=== PATIENT | female | born 1955 | race Caucasian/White ===

== ENCOUNTER 2020-08-15 10:42 | Outpatient (REF) | payer OTHER, SELFPAY ==
[2020-08-15 14:06] LABS: MANUAL DIFF FLAG NO
[2020-08-15 14:09] LABS: Basophils Percent Auto 0.6 % (0-2); Eosinophils Absolute Auto 0.1 X10*3/uL (0.0-0.4); Hematocrit 37.2 % (37-47); Hemoglobin 12.2 g/dl (12.0-16.0); Imm Gran Abs Auto 0.01 X10*3/uL (0.00-0.03); Imm Gran Pct Auto 0.1 % (0.0-0.4); Lymphocytes Absolute Auto 1.6 X10*3/uL (1.2-4.9); Lymphocytes Percent Auto 22.3 % (20-40); Mean Corpuscular HGB Conc 32.8 g/dl (31.0-35.0); Mean Corpuscular Hemoglobin 27.9 pg (27.0-33.0); Mean Corpuscular Volume 84.9 fL (80-98); Mean Platelet Volume 9.8 fL (9.4-12.3); Monocytes Absolute Auto 0.6 X10*3/uL (0.1-1.2); Monocytes Percent Auto 8.7 % (2-11); Neutrophils Absolute Auto 4.7 X10*3/uL (2.0-8.3); Neutrophils Percent Auto 66.3 % (45-73); Platelet Count 175 X10*3/uL (160-400); Red Blood Count 4.38 X10*6/uL (4.20-5.50); White Blood Count 7.1 X10*3/uL (4.8-10.8)
[2020-08-15 14:28] LABS: Glucose Urine UA NEG (NEG); PH 5.5 (5.0-8.0); Urine Blood NEG (NEG)
[2020-08-15 14:29] LABS: Leukocyte Esterase Urine NEG (NEG); Nitrite Urine NEG (NEG); Specific Gravity - Urine >= 1.030 (1.005-1.025); Urine Ketones NEG (NEG); Urine Protein NEG (NEG-TRACE)
[2020-08-15 14:33] LABS: Appearance Urine CLOUDY; Color Urine YELLOW
[2020-08-15 14:36] LABS: Estimated Average Glucose 105 mg/dL; Hemoglobin A1c % 5.3 %
[2020-08-15 14:41] LABS: Alanine Aminotransferase 20 U/L (0-31); Albumin Level 4.2 g/dL (3.5-5.0); Alkaline Phosphatase 81 U/L (39-117); Anion Gap 15 (12-20); Aspartate Amino Transferase 20 U/L (5-31); Bilirubin Total 0.6 mg/dL (0.0-1.0); Blood Urea Nitrogen 13 mg/dL (9-16); Calcium 8.8 mg/dL (8.4-10.2); Carbon Dioxide 26 mmol/L (22-29); Chloride 106 mmol/L (96-108); Cholesterol 146 mg/dL; Estimated Glomerular Filt Rate > 60; Glucose Fasting 94 mg/dL (60-99); HDL Cholesterol 33 mg/dL; LDL Cholesterol Calculated 93 mg/dl; Potassium 3.9 mmol/l (3.3-5.1); Sodium 143 mmol/L (135-145); Total Protein 6.5 g/dL (6.5-8.0); Triglycerides 104 mg/dL
[2020-08-15 15:00] LABS: Amorphous Sediment Urine 3+ /LPF; RBC Urine 0 /HPF (0); Squamous Epithelial Cell Urine TRACE /LPF; WBC Urine 0-2 /HPF (0-4)
[2020-08-15 15:01] LABS: Vitamin D 25-OH Total 25.1 ng/mL (>30)
[2020-08-15 16:38] LABS: Folate 6.4 ng/mL (> or = 4.0); Vitamin B12 562 pg/mL (200-900)
== END 2020-08-15 10:43 | disposition home or self-care (01) ==
LOC: HO.HMGCLDS 10:42
PROVIDERS: PCP Internal Medicine; Visit Provider Internal Medicine
DX: E78.5 Hyperlipidemia, unspecified (principal); I10 Essential (primary) hypertension; R73.01 Impaired fasting glucose; G62.9 Polyneuropathy, unspecified; E55.9 Vitamin D deficiency, unspecified
CPT/HCPCS: 36415; 80053; 80061; 81001; 81003; 82306; 82607; 82746; 83036; 85025

== ENCOUNTER 2021-02-06 10:48 | Outpatient (REF) | payer OTHER, SELFPAY ==
[2021-02-06 13:54] LABS: MANUAL DIFF FLAG NO
[2021-02-06 14:02] LABS: Basophils Absolute Auto 0.1 X10*3/uL (0.0-0.2); Basophils Percent Auto 0.8 % (0-2); Eosinophils Absolute Auto 0.2 X10*3/uL (0.0-0.4); Eosinophils Percent Auto 1.8 % (0-4); Hematocrit 39.9 % (37-47); Hemoglobin 12.8 g/dl (12.0-16.0); Imm Gran Abs Auto 0.02 X10*3/uL (0.00-0.03); Imm Gran Pct Auto 0.2 % (0.0-0.4); Lymphocytes Absolute Auto 2.2 X10*3/uL (1.2-4.9); Lymphocytes Percent Auto 25.5 % (20-40); Mean Corpuscular HGB Conc 32.1 g/dl (31.0-35.0); Mean Corpuscular Hemoglobin 27.3 pg (27.0-33.0); Mean Corpuscular Volume 85.1 fL (80-98); Mean Platelet Volume 9.8 fL (9.4-12.3); Monocytes Absolute Auto 0.8 X10*3/uL (0.1-1.2); Neutrophils Absolute Auto 5.4 X10*3/uL (2.0-8.3); Neutrophils Percent Auto 62.7 % (45-73); Platelet Count 243 X10*3/uL (160-400); Red Blood Count 4.69 X10*6/uL (4.20-5.50); Red Cell Distribution Width 13.3 % (11.0-16.0); White Blood Count 8.7 X10*3/uL (4.8-10.8)
[2021-02-06 14:30] LABS: Alanine Aminotransferase 17 U/L (0-31); Albumin Level 4.3 g/dL (3.5-5.0); Alkaline Phosphatase 75 U/L (39-117); Anion Gap 13 (12-20); Aspartate Amino Transferase 19 U/L (5-31); Bilirubin Total 0.5 mg/dL (0.0-1.0); Blood Urea Nitrogen 17 mg/dL (9-16); Calcium 8.9 mg/dL (8.4-10.2); Carbon Dioxide 27 mmol/L (22-29); Chloride 106 mmol/L (96-108); Cholesterol 203 mg/dL; Estimated Glomerular Filt Rate > 60; Glucose Fasting 87 mg/dL (60-99); HDL Cholesterol 31 mg/dL; LDL Cholesterol Calculated 144 mg/dl; Potassium 4.4 mmol/L (3.3-5.1); Sodium 142 mmol/L (135-145); Total Protein 6.8 g/dL (6.5-8.0); Triglycerides 144 mg/dL
[2021-02-06 14:39] LABS: TSH reflex Free T4 1.76 uIU/mL (0.32-4.0); Vitamin D 25-OH Total 14.1 ng/mL (>30)
[2021-02-06 14:53] LABS: Folate 4.7 ng/mL (> or = 4.0); Vitamin B12 516 pg/mL (200-900)
== END 2021-02-06 10:49 | disposition home or self-care (01) ==
LOC: HO.HMGCLDS 10:48
PROVIDERS: PCP Internal Medicine; Visit Provider Internal Medicine
DX: E78.00 Pure hypercholesterolemia, unspecified (principal); G62.9 Polyneuropathy, unspecified; R73.01 Impaired fasting glucose; E66.9 Obesity, unspecified; J45.20 Mild intermittent asthma, uncomplicated; M51.36 Other intervertebral disc degeneration, lumbar region; E55.9 Vitamin D deficiency, unspecified
CPT/HCPCS: 36415; 80053; 80061; 82306; 82607; 82746; 84443; 85025

== ENCOUNTER 2021-02-27 15:47 | Emergency (ER) | payer OTHER, SELFPAY ==
--- NOTE | ~2021-02-27 | XR_ITS ---
EXAMINATION: XR CHEST CLINICAL INFORMATION: Wheezing. COMPARISON: Previous chest x-ray June 2018 TECHNIQUE: Frontal view of the chest was obtained. FINDINGS: The cardiac and mediastinal contours are normal. There are increased markings seen in the central right upper lobe questionable for bronchial wall thickening. The lungs are otherwise clear. There is no pleural effusion or pneumothorax. There is curvature of the spine. XR/XR chest 1V IMPRESSION: Question bronchial wall thickening in the right upper lobe, otherwise unremarkable exam.
--- NOTE | ~2021-02-27 | CT_ITS ---
EXAMINATION: CT BRAIN AND CT CERVICAL SPINE WITHOUT CONTRAST. CLINICAL INFORMATION: Status post fall. Altered mental status. Confusion. COMPARISON: CT brain 06/12/2018 TECHNIQUE: 5 mm thin axial and reformatted 2 mm thin sagittal and coronal images of brain were obtained. Subsequently axial 3 mm thin and reformatted 2 mm thin sagittal and coronal images of cervical spine were obtained. DLP 1090 FINDINGS: BRAIN: There is no acute intra-axial, extra-axial bleed, masses or midline shift. There is no acute infarction in evolution. Is no edema. Starkey to white matter differentiation is maintained. The lateral ventricles are symmetrical in size and configuration without enlargement. Bone windows reveal no calvarial abnormality. I lateral paranasal sinuses and mastoid air cells are well-aerated. CERVICAL SPINE: There is reversal of cervical lordosis. The vertebral heights and alignment is normal. There is loss of C4-C5, C5-C6, C6-C7 disc heights with moderate ventral spondylosis. There is mild rotary subluxation at C1-C2 disc level. No visible acute fracture or dislocation seen. The prevertebral and paravertebral soft tissues are normal. The lung apices are clear. CT/CT head/brain wo con IMPRESSION: No acute intracranial process seen. Reversal of cervical lordosis. No visible acute fracture or dislocation seen. There is a rotatory subluxation C1-C2 disc level. There is mild degenerative disc changes and spondylosis C4-C5 through C6-C7 disc levels.
--- NOTE | ~2021-02-27 | CT_ITS ---
EXAMINATION: CT BRAIN AND CT CERVICAL SPINE WITHOUT CONTRAST. CLINICAL INFORMATION: Status post fall. Altered mental status. Confusion. COMPARISON: CT brain 06/12/2018 TECHNIQUE: 5 mm thin axial and reformatted 2 mm thin sagittal and coronal images of brain were obtained. Subsequently axial 3 mm thin and reformatted 2 mm thin sagittal and coronal images of cervical spine were obtained. DLP 1090 FINDINGS: BRAIN: There is no acute intra-axial, extra-axial bleed, masses or midline shift. There is no acute infarction in evolution. Is no edema. Star[place] to white matter differentiation is maintained. The lateral ventricles are symmetrical in size and configuration without enlargement. Bone windows reveal no calvarial abnormality. I lateral paranasal sinuses and mastoid air cells are well-aerated. CERVICAL SPINE: There is reversal of cervical lordosis. The vertebral heights and alignment is normal. There is loss of C4-C5, C5-C6, C6-C7 disc heights with moderate ventral spondylosis. There is mild rotary subluxation at C1-C2 disc level. No visible acute fracture or dislocation seen. The prevertebral and paravertebral soft tissues are normal. The lung apices are clear. CT/CT cervical spine wo con IMPRESSION: No acute intracranial process seen. Reversal of cervical lordosis. No visible acute fracture or dislocation seen. There is a rotatory subluxation C1-C2 disc level. There is mild degenerative disc changes and spondylosis C4-C5 through C6-C7 disc levels.
[2021-02-27 15:54] VITALS: BP 124/73; BP 142/82; PULSE 87; RESP 18; TEMP 37.1; O2SAT 98; BMI 34.0
--- NOTE | 2021-02-27 16:02 | ECG_ITS ---
Test Reason : AMS Blood Pressure : / mmHG Vent. Rate : 088 BPM Atrial Rate : 088 BPM P-R Int : 128 ms QRS Dur : 072 ms QT Int : 334 ms P-R-T Axes : 076 057 067 degrees QTc Int : 404 ms Normal sinus rhythm Normal ECG When compared with ECG of 18-JUL-2018 20:03, No significant change was found Referred By: Danielle Rasheed Electronically Signed By:JEANA THOMASON
--- NOTE | 2021-02-27 16:06 | ED_ITS ---
HPI - Altered Mental Status General Chief Complaint: Altered Mental Status Stated Complaint: ams Time Seen by Provider: 02/27/21 15:56 Source: patient and EMS Mode of arrival: EMS Limitations: altered mental status History of Present Illness HPI narrative: 65 y/o female with history of chronic back pain on chronic o piates, anxiety, insomnia, asthma, HLD who presents to the ED from her assisted living via EMS after she was found altered laying on the floor in her kitchen with burning food on the stove. Patient was found confused, altered and agitated. She told EMS she was in the hospital when they arrived. She was combative en route when they attempted IV access. MD complaint: altered mental status and confusion Onset (ago): hour(s) (3) Severity: moderate Consistency of symptoms: waxing and waning Context: history of similar presentation (occurred once before per [place] ) Associated symptoms: other (insomnia) Related Data Previous Rx's Medication Instructions Recorded SHOWER CHAIR #1 ea 12/11/20 zolpidem 10 mg tablet 10 mg PO BEDTIME PRN 30 Days #30 01/05/21 tab pregabalin 150 mg capsule 150 mg PO TID 30 Days #90 cap 01/30/21 lorazepam 1 mg tablet 1 mg PO BID PRN 30 Days #60 tab 02/04/21 morphine 60 mg tablet,extended 120 mg PO BID 28 Days #112 tab 02/06/21 release oxycodone-acetaminophen 10 mg-325 1 tab PO BID PRN 28 Days #56 tab 02/06/21 mg tablet albuterol sulfate 90 mcg/actuation 2 puff PO QID PRN #8.5 cap 02/25/21 aerosol inhaler ibuprofen 800 mg tablet 800 mg PO TID PRN #270 cap 02/25/21 methocarbamol 500 mg tablet 500 mg PO Q8H PRN #90 cap 02/26/21 Allergies Allergy/AdvReac Type Severity Reaction Status Date / Time No Known Allergies Allergy Verified 02/18/21 15:30 Review of Systems Review of Systems: Constitutional: No Fever, No Chills ENT/Mouth: No sore throat, No Rhinorrhea Cardiovascular: No Chest Pain, No SOB, No Orthopnea, No Edema Respiratory: No Cough, No Sputum, No Wheezing, No dyspnea Gastrointestinal: No Nausea, No Vomiting, No Diarrhea, No abdominal Pain Genitourinary: No Dysuria, No Urinary Frequency, No Hematuria Musculoskeletal: No joint pain, No Myalgias Skin: No Skin Lesions, No rash Neuro: No Weakness, No Numbness, No Dizziness, No Headache Psych: No Anxiety/Panic, No Depression Heme/Lymph: No Bruising, No Lymphadenopathy Endocrine: No Polyuria, No Polydipsia [facility] Past Medical History Attestation statement: The following information was validated with the patient. Medical History Anxiety Asthma Elevated blood pressure reading Impaired fasting glucose Insomnia Lumbar degenerative disc disease Neuropathy Obesity (BMI 30-39.9) Pure hypercholesterolemia Vitamin D deficiency Surgical History H/O total hysterectomy History of lumbar surgery Family History Family History Father CVD (cardiovascular disease) Mother Cancer Social History Social History Alcohol intake: unknown Smoking Status: Unknown if ever smoked Use of substances other than those prescribed or required for medical reasons: Unknown Advance Directives: No Advance Directives Information Provided: Yes Patient : No Physical Exam Vital Signs: Vital Signs: Last Vital Signs Temp 98.7 F 02/27/21 15:54 Pulse 72 02/27/21 16:54 Resp 16 02/27/21 16:54 BP 128/64 02/27/21 16:54 Pulse Ox 98 02/27/21 16:54 Body Mass Index 34.0 Appearance: lethargic female, appears older than stated age, arrives in night gown with dried food on the front Eyes: Pupils equal, round and reactive to light, 3mm bilaterally. ENT: Pharynx normal. Neck: Normal inspection. Neck supple. CVS: Normal heart rate and rhythm. Pulses normal. Respiratory: No respiratory distress. Breath sounds with mild end expiratory wheeze in upper lung perkins Abdomen: Obese, Soft and nontender. +BS x4 Skin: Skin warm and dry. Normal skin color. Normal skin turgor. No rashes. Extremities: No lower extremity edema. Atraumatic. Neuro: Arouses to voice, follows simple commands, strength equal and symmetrical throughout, able to lift both legs off the bed, raise both arms above her head, no pronator drift, equal paper sealer strength, falls asleep when not engaged. Course Course Course Narrative: 65 y/o female with chronic pain on high dose opiates who presents with AMS and fall, unknown down time. Neuro exam is non-focal but altered and confused. Doubt CVA. Concern for polypharmacy and potential unintentional narcotic overdose. She is lethargic but follows commands. Will check EKG, CXR, labs and CT head/C-spine. Spoke with patient's daughter at the bedside. She reported that her mom was te xting her earlier today saying she has not slept in several nights. She is no longer taking Ambien, because she lost a day and a half and had a similar episode to this when she was on it. Daughter reports NO recent medication changes and she actually thinks the pain meds she is on is not enough. She continues to report chronic pain in her back. Will likely require admission. Reevaluation(s) Reevaluation #1: Lab workup and CT scans are largely unremarkable. Patient's mental status significantly improved after several hours in the ER. She is now AAO X4. When asked about the events of today patient reports taking 5 Ambien in order to sleep. She admits to struggling to sleep and has not gotten sleep in 1 week. She was not trying to harm herself she was just desperate for sleep. She denies trying to harm herself. She did not know the maximum dose of this medication. Safety concern were discussed with the patient and the daughter at the bedside. It is recommended that the patient STOP ambien as this is the second adverse event. The daughter is willing to fill the pill boxes for mother. She has visiting nursing 3 times per week. There is no indication for admission to the hospital at this time. There is no SI and she has good follow up with her PCP. Case was d/w Radha from [facility] and Dr. Tyson as well. Patient's daughter will stay with her tonight and arrange her medications moving forward. MDM - Altered Mental Status Medical Records Attestation: I reviewed the patient's medical records. Lab Data Attestation: I reviewed the patient's lab results. Result diagrams: 02/27/21 16:14 02/27/21 16:14 Labs: Lab Results 02/27/21 02/27/21 02/27/21 Range/Units 16:14 16:14 16:14 WBC 8.0 (4.8-10.8) X10*3/uL RBC 4.38 (4.20-5.50) X10*6/uL Hgb 12.0 (12.0-16.0) g/dl Hct 36.4 L (37-47) % MCV 83.1 (80-98) fL MCH 27.4 (27.0-33.0) pg MCHC 33.0 (31.0-35.0) g/dl RDW 13.0 (11.0-16.0) % Plt Count 202 (160-400) X10*3/uL MPV 9.1 L (9.4-12.3) fL Immature Gran % (Auto) 0.2 (0.0-0.4) % Neut % (Auto) 64.2 (45-73) % Lymph % (Auto) 25.6 (20-40) % [place] % (Auto) 7.7 (2-11) % Eos % (Auto) 1.7 (0-4) % Baso % (Auto) 0.6 (0-2) % Lymph # (Auto) 2.1 (1.2-4.9) X10*3/uL [place] # (Auto) 0.6 (0.1-1.2) X10*3/uL Eos # (Auto) 0.1 (0.0-0.4) X10*3/uL Baso # (Auto) 0.1 (0.0-0.2) X10*3/uL Abs Immat Gran (auto) 0.02 (0.00-0.03) X10*3/uL Absolute Neuts (auto) 5.2 (2.0-8.3) X10*3/uL Absolute Nucleated RBC 0.000 (0.0-0.012) X10*3/uL Nucleated RBC % (auto) 0.0 (0.0-0.2) /100WBC PT 13.3 H (10.8-13.0) SEC INR 1.1 (0.9-1.1) Hold Blue Top SEE NOTE Sodium 142 (135-145) mmol/L Potassium 4.5 (3.3-5.1) mmol/L Chloride 110 H (96-108) mmol/L Carbon Dioxide 26 (22-29) mmol/L Anion Gap 11 L (12-20) BUN 19 H (9-16) mg/dL Creatinine 0.88 (0.5-1.4) mg/dL Estim Creat Clear Calc 67.5 Estimated GFR > 60 Random Glucose 107 (60-115) mg/dL Calcium 9.4 (8.4-10.2) mg/dL Magnesium 1.8 (1.6-2.6) mg/dL Total Bilirubin 0.7 (0.0-1.0) mg/dL Direct Bilirubin 0.2 (0.0-0.5) mg/dL AST 24 (5-31) U/L ALT 18 (0-31) U/L Alkaline Phosphatase 71 (39-117) U/L Total Creatine Kinase 484 H (26-140) U/L Troponin I High Sens (<3.5-17.0) ng/L Total Protein 6.4 L (6.5-8.0) g/dL Albumin 4.1 (3.5-5.0) g/dL Urine Color Urine Appearance Urine pH (5.0-8.0) Ur Specific [place] (1.005-1.025) Urine Protein (NEG-TRACE) MG/DL Urine Glucose (UA) (NEG) MG/DL Urine Ketones (NEG) MG/DL Urine Blood (NEG) Urine Nitrite (NEG) Ur Leukocyte Esterase (NEG) Urine RBC (0) /HPF Urine WBC (0-4) /HPF Ur Squamous Epith Cells /LPF Urine Bacteria /LPF Urine Opiates Screen (Not Detect) Ur Barbiturates Screen (Not Detect) Ur Phencyclidine Scrn (Not Detect) Ur Amphetamines Screen (Not Detect) U Benzodiazepines Scrn (Not Detect) Urine Cocaine Screen (Not Detect) U Marijuana (THC) Screen (Not Detect) Ethyl Alcohol mg/dL COVID-19 ([facility]) (Negative) COVID-19 Clin Com 02/27/21 02/27/21 02/27/21 Range/Units 16:14 16:14 16:14 WBC (4.8-10.8) X10*3/uL RBC (4.20-5.50) X10*6/uL Hgb (12.0-16.0) g/dl Hct (37-47) % MCV (80-98) fL MCH (27.0-33.0) pg MCHC (31.0-35.0) g/dl RDW (11.0-16.0) % Plt Count (160-400) X10*3/uL MPV (9.4-12.3) fL Immature Gran % (Auto) (0.0-0.4) % Neut % (Auto) (45-73) % Lymph % (Auto) (20-40) % [place] % (Auto) (2-11) % Eos % (Auto) (0-4) % Baso % (Auto) (0-2) % Lymph # (Auto) (1.2-4.9) X10*3/uL [place] # (Auto) (0.1-1.2) X10*3/uL Eos # (Auto) (0.0-0.4) X10*3/uL Baso # (Auto) (0.0-0.2) X10*3/uL Abs Immat Gran (auto) (0.00-0.03) X10*3/uL Absolute Neuts (auto) (2.0-8.3) X10*3/uL Absolute Nucleated RBC (0.0-0.012) X10*3/uL Nucleated RBC % (auto) (0.0-0.2) /100WBC PT (10.8-13.0) SEC INR (0.9-1.1) Hold Blue Top Sodium (135-145) mmol/L Potassium (3.3-5.1) mmol/L Chloride (96-108) mmol/L Carbon Dioxide (22-29) mmol/L Anion Gap (12-20) BUN (9-16) mg/dL Creatinine (0.5-1.4) mg/dL Estim Creat Clear Calc Estimated GFR Random Glucose (60-115) mg/dL Calcium (8.4-10.2) mg/dL Magnesium (1.6-2.6) mg/dL Total Bilirubin (0.0-1.0) mg/dL Direct Bilirubin (0.0-0.5) mg/dL AST (5-31) U/L ALT (0-31) U/L Alkaline Phosphatase (39-117) U/L Total Creatine Kinase (26-140) U/L Troponin I High Sens < 3.5 (<3.5-17.0) ng/L Total Protein (6.5-8.0) g/dL Albumin (3.5-5.0) g/dL Urine Color Urine Appearance Urine pH (5.0-8.0) Ur Specific [place] (1.005-1.025) Urine Protein (NEG-TRACE) MG/DL Urine Glucose (UA) (NEG) MG/DL Urine Ketones (NEG) MG/DL Urine Blood (NEG) Urine Nitrite (NEG) Ur Leukocyte Esterase (NEG) Urine RBC (0) /HPF Urine WBC (0-4) /HPF Ur Squamous Epith Cells /LPF Urine Bacteria /LPF Urine Opiates Screen (Not Detect) Ur Barbiturates Screen (Not Detect) Ur Phencyclidine Scrn (Not Detect) Ur Amphetamines Screen (Not Detect) U Benzodiazepines Scrn (Not Detect) Urine Cocaine Screen (Not Detect) U Marijuana (THC) Screen (Not Detect) Ethyl Alcohol < 10 mg/dL COVID-19 ([facility]) Negative (Negative) COVID-19 Clin Com See Note 02/27/21 02/27/21 Range/Units 18:17 18:17 WBC (4.8-10.8) X10*3/uL RBC (4.20-5.50) X10*6/uL Hgb (12.0-16.0) g/dl Hct (37-47) % MCV (80-98) fL MCH (27.0-33.0) pg MCHC (31.0-35.0) g/dl RDW (11.0-16.0) % Plt Count (160-400) X10*3/uL MPV (9.4-12.3) fL Immature Gran % (Auto) (0.0-0.4) % Neut % (Auto) (45-73) % Lymph % (Auto) (20-40) % [place] % (Auto) (2-11) % Eos % (Auto) (0-4) % Baso % (Auto) (0-2) % Lymph # (Auto) (1.2-4.9) X10*3/uL [place] # (Auto) (0.1-1.2) X10*3/uL Eos # (Auto) (0.0-0.4) X10*3/uL Baso # (Auto) (0.0-0.2) X10*3/uL Abs Immat Gran (auto) (0.00-0.03) X10*3/uL Absolute Neuts (auto) (2.0-8.3) X10*3/uL Absolute Nucleated RBC (0.0-0.012) X10*3/uL Nucleated RBC % (auto) (0.0-0.2) /100WBC PT (10.8-13.0) SEC INR (0.9-1.1) Hold Blue Top Sodium (135-145) mmol/L Potassium (3.3-5.1) mmol/L Chloride (96-108) mmol/L Carbon Dioxide (22-29) mmol/L Anion Gap (12-20) BUN (9-16) mg/dL Creatinine (0.5-1.4) mg/dL Estim Creat Clear Calc Estimated GFR Random Glucose (60-115) mg/dL Calcium (8.4-10.2) mg/dL Magnesium (1.6-2.6) mg/dL Total Bilirubin (0.0-1.0) mg/dL Direct Bilirubin (0.0-0.5) mg/dL AST (5-31) U/L ALT (0-31) U/L Alkaline Phosphatase (39-117) U/L Total Creatine Kinase (26-140) U/L Troponin I High Sens (<3.5-17.0) ng/L Total Protein (6.5-8.0) g/dL Albumin (3.5-5.0) g/dL Urine Color YELLOW Urine Appearance CLEAR Urine pH 5.5 (5.0-8.0) Ur Specific [place] 1.025 (1.005-1.025) Urine Protein NEG (NEG-TRACE) MG/DL Urine Glucose (UA) NEG (NEG) MG/DL Urine Ketones NEG (NEG) MG/DL Urine Blood TRACE (NEG) Urine Nitrite NEG (NEG) Ur Leukocyte Esterase NEG (NEG) Urine RBC 0 (0) /HPF Urine WBC 0 (0-4) /HPF Ur Squamous Epith Cells 1+ /LPF Urine Bacteria TRACE /LPF Urine Opiates Screen POSITIVE H (Not Detect) Ur Barbiturates Screen Not Detected (Not Detect) Ur Phencyclidine Scrn Not Detected (Not Detect) Ur Amphetamines Screen Not Detected (Not Detect) U Benzodiazepines Scrn Not Detected (Not Detect) Urine Cocaine Screen Not Detected (Not Detect) U Marijuana (THC) Screen Not Detected (Not Detect) Ethyl Alcohol mg/dL COVID-19 ([facility]) (Negative) COVID-19 Clin Com ECG Data ECG #1: Attestation: I personally reviewed and interpreted this ECG as follows: Interpretation: normal sinus rhythm, HR 88 bpm, normal WI interval, normal QTc, no ST segment elevations Discharge Plan Discharge Clinical Impression: Ambien accidental overdose Qualifiers: Encounter type: initial encounter Qualified Code(s): T42.6X1A - Poisoning by other antiepileptic and sedative-hypnotic drugs, accidental (unintentional), initial encounter Patient Disposition: Home, Self-Care Instructions: Insomnia (ED), Adult Overdose (ED) Additional Instructions: It is recommended that you STOP taking Ambien. It is not safe for your to take. Recommend your daughter filling ALL of your medications daily. You are high doses of several medications that can alter your consciousness and safety at home. These need to be monitored closely. Follow up with your doctor on Tuesday. If you have any worsening symptoms of confusion or any other concerning symptom come back to the ER for further evaluation. Prescriptions: No Action (DME) SHOWER CHAIR See Rx Instructions .Route .MEDSUPPLY Qty: 1 RF: 0 zolpidem 10 mg tablet 10 mg PO BEDTIME PRN (Reason: insomnia) 30 Days Qty: 30 RF: 2 pregabalin 150 mg capsule 150 mg PO TID 30 Days Qty: 90 RF: 1 lorazepam 1 mg tablet 1 mg PO BID PRN (Reason: anxiety) 30 Days Qty: 60 RF: 0 morphine 60 mg tablet extended release 120 mg PO BID 28 Days Qty: 112 RF: 0 oxycodone-acetaminophen 10-325 mg tablet 1 tab PO BID PRN (Reason: pain) 28 Days Qty: 56 RF: 0 albuterol sulfate 90 mcg/actuation HFA aerosol inhaler 2 puff PO QID PRN (Reason: shortness of breath or wheezing) Qty: 8.5 RF: 3 ibuprofen 800 mg tablet 800 mg PO TID PRN (Reason: pain) Qty: 270 RF: 3 methocarbamol 500 mg tablet 500 mg PO Q8H PRN (Reason: for muscle spasm) Qty: 90 RF: 0
[2021-02-27 16:20] LABS: MANUAL DIFF FLAG NO
[2021-02-27 16:23] LABS: Basophils Absolute Auto 0.1 X10*3/uL (0.0-0.2); Basophils Percent Auto 0.6 % (0-2); Eosinophils Absolute Auto 0.1 X10*3/uL (0.0-0.4); Eosinophils Percent Auto 1.7 % (0-4); Hematocrit 36.4 % (37-47); Imm Gran Abs Auto 0.02 X10*3/uL (0.00-0.03); Imm Gran Pct Auto 0.2 % (0.0-0.4); Lymphocytes Absolute Auto 2.1 X10*3/uL (1.2-4.9); Lymphocytes Percent Auto 25.6 % (20-40); Mean Corpuscular Hemoglobin 27.4 pg (27.0-33.0); Mean Corpuscular Volume 83.1 fL (80-98); Mean Platelet Volume 9.1 fL (9.4-12.3); Monocytes Absolute Auto 0.6 X10*3/uL (0.1-1.2); Monocytes Percent Auto 7.7 % (2-11); Neutrophils Absolute Auto 5.2 X10*3/uL (2.0-8.3); Neutrophils Percent Auto 64.2 % (45-73); Platelet Count 202 X10*3/uL (160-400); Red Blood Count 4.38 X10*6/uL (4.20-5.50)
[2021-02-27 16:29] LABS: INTERNATIONAL NORM RATIO 1.1 (0.9-1.1); Prothrombin Time 13.3 SEC (10.8-13.0)
[2021-02-27 16:46] LABS: Ethanol < 10 mg/dL
[2021-02-27 16:50] LABS: Alanine Aminotransferase 18 U/L (0-31); Albumin Level 4.1 g/dL (3.5-5.0); Alkaline Phosphatase 71 U/L (39-117); Anion Gap 11 (12-20); Aspartate Amino Transferase 24 U/L (5-31); Bilirubin Direct 0.2 mg/dL (0.0-0.5); Bilirubin Total 0.7 mg/dL (0.0-1.0); Blood Urea Nitrogen 19 mg/dL (9-16); COVID-19 Test Negative (Negative); Calcium 9.4 mg/dL (8.4-10.2); Carbon Dioxide 26 mmol/L (22-29); Chloride 110 mmol/L (96-108); Creatinine Clr Calc Pharmacy 67.5; Estimated Glomerular Filt Rate > 60; Glucose Random 107 mg/dL (60-115); IDNOW Serial# 9DD0AD1C; Magnesium 1.8 mg/dL (1.6-2.6); Potassium 4.5 mmol/L (3.3-5.1); Sodium 142 mmol/L (135-145); Total Protein 6.4 g/dL (6.5-8.0)
[2021-02-27 16:54] VITALS: BP 128/64; PULSE 72; RESP 16; O2SAT 98
[2021-02-27 16:56] LABS: Troponin-I High Sensitivity < 3.5 ng/L (<3.5-17.0)
[2021-02-27] MEDS: 0.9 % Sodium Chloride 1,000 ML 999 ML IVCONT (18:01)
--- NOTE | 2021-02-27 18:08 | PC.NURSE ---
to [facility] with assistance
[2021-02-27 18:24] LABS: Glucose Urine UA NEG (NEG); Leukocyte Esterase Urine NEG (NEG); Nitrite Urine NEG (NEG); PH 5.5 (5.0-8.0); Specific Gravity - Urine 1.025 (1.005-1.025); Urine Blood TRACE (NEG); Urine Ketones NEG (NEG); Urine Protein NEG (NEG-TRACE)
[2021-02-27 18:29] LABS: Appearance Urine CLEAR; Color Urine YELLOW
[2021-02-27 18:35] LABS: Bacteria Urine TRACE /LPF; RBC Urine 0 /HPF (0); Squamous Epithelial Cell Urine 1+ /LPF; WBC Urine 0 /HPF (0-4)
[2021-02-27 18:46] LABS: Amphetamine Screen Urine Not Detected (Not Detect); Barbiturates, Urine Not Detected (Not Detect); Benzodiazepines Screen Urine Not Detected (Not Detect); Cannabinoid Screen Urine Not Detected (Not Detect); Cocaine Screen Urine Not Detected (Not Detect); Opiate Screen Urine POSITIVE (Not Detect); Phencyclidine Screen Urine Not Detected (Not Detect)
== END 2021-02-27 19:46 | disposition home or self-care (01) ==
PROVIDERS: Physician Assistant; Emergency Provider Emergency Medicine; PCP Internal Medicine
DX: T42.6X1A Poisoning by other antiepileptic and sedative-hypnotic drugs, accidental (unintentional), initial encounter (principal); R41.82 Altered mental status, unspecified; G47.00 Insomnia, unspecified; M54.5 Low back pain; Y92.009 Unspecified place in unspecified non-institutional (private) residence as the place of occurrence of the external cause; Z20.822 Contact with and (suspected) exposure to COVID-19; Z79.899 Other long term (current) drug therapy
CPT/HCPCS: 36415; 70450; 71045; 72125; 80048; 80076; 80307; 80320; 81001; 82550; 83735; 84484; 85025; 85610; 87635; 93005; 99285

== ENCOUNTER 2021-05-18 13:22 | Outpatient (REF) | payer OTHER, SELFPAY ==
[2021-05-18 13:54] LABS: MANUAL DIFF FLAG NO
[2021-05-18 13:57] LABS: Basophils Absolute Auto 0.1 X10*3/uL (0.0-0.2); Basophils Percent Auto 0.7 % (0-2); Eosinophils Absolute Auto 0.2 X10*3/uL (0.0-0.4); Eosinophils Percent Auto 2.9 % (0-4); Hematocrit 37.1 % (37-47); Hemoglobin 12.2 g/dl (12.0-16.0); Imm Gran Abs Auto 0.02 X10*3/uL (0.00-0.03); Imm Gran Pct Auto 0.2 % (0.0-0.4); Lymphocytes Absolute Auto 2.1 X10*3/uL (1.2-4.9); Lymphocytes Percent Auto 24.9 % (20-40); Mean Corpuscular HGB Conc 32.9 g/dl (31.0-35.0); Mean Corpuscular Volume 85.3 fL (80-98); Mean Platelet Volume 9.5 fL (9.4-12.3); Monocytes Absolute Auto 0.7 X10*3/uL (0.1-1.2); Monocytes Percent Auto 7.9 % (2-11); Neutrophils Absolute Auto 5.2 X10*3/uL (2.0-8.3); Neutrophils Percent Auto 63.4 % (45-73); Platelet Count 193 X10*3/uL (160-400); Red Blood Count 4.35 X10*6/uL (4.20-5.50); Red Cell Distribution Width 12.8 % (11.0-16.0); White Blood Count 8.2 X10*3/uL (4.8-10.8)
[2021-05-18 14:25] LABS: Alanine Aminotransferase 27 U/L (0-31); Albumin Level 4.1 g/dL (3.5-5.0); Alkaline Phosphatase 86 U/L (39-117); Anion Gap 12 (12-20); Aspartate Amino Transferase 24 U/L (5-31); Bilirubin Total 0.6 mg/dL (0.0-1.0); Blood Urea Nitrogen 16 mg/dL (9-16); Calcium 8.9 mg/dL (8.4-10.2); Carbon Dioxide 28 mmol/L (22-29); Chloride 105 mmol/L (96-108); Cholesterol 149 mg/dL; Estimated Glomerular Filt Rate > 60; Glucose Fasting 81 mg/dL (60-99); HDL Cholesterol 32 mg/dL; LDL Cholesterol Calculated 90 mg/dl; Sodium 140 mmol/L (135-145); Total Protein 6.5 g/dL (6.5-8.0); Triglycerides 135 mg/dL
[2021-05-18 14:47] LABS: TSH reflex Free T4 0.96 uIU/mL (0.32-4.0); Vitamin D 25-OH Total 20.5 ng/mL (>30)
[2021-05-18 16:39] LABS: Glucose Urine UA NEG (NEG); Leukocyte Esterase Urine NEG (NEG); Nitrite Urine NEG (NEG); Urine Blood NEG (NEG); Urine Ketones NEG (NEG); Urine Protein NEG (NEG-TRACE)
[2021-05-18 16:48] LABS: Appearance Urine CLEAR; Color Urine YELLOW
== END 2021-05-18 13:23 | disposition home or self-care (01) ==
LOC: HO.HMGCLDS 13:22
PROVIDERS: PCP Internal Medicine; Visit Provider Internal Medicine
DX: G62.9 Polyneuropathy, unspecified (principal); E66.9 Obesity, unspecified; E78.00 Pure hypercholesterolemia, unspecified; M51.36 Other intervertebral disc degeneration, lumbar region; R73.01 Impaired fasting glucose; E55.9 Vitamin D deficiency, unspecified
CPT/HCPCS: 36415; 80053; 80061; 81003; 82306; 84443; 85025

== ENCOUNTER 2021-09-11 12:59 | Emergency (ER) | payer OTHER, SELFPAY ==
[2021-09-11] VITALS (12 sets, daily range): BP systolic 130–176; BP diastolic 32–90; PULSE 68–106; RESP 18–24; TEMP 37.4; O2SAT 96–100; BMI 28.3
--- NOTE | ~2021-09-11 | CT_ITS ---
EXAMINATION: CT HEAD WITHOUT CONTRAST CLINICAL INFORMATION: Altered mental status, confused COMPARISON: CT had noncontrast 02/27/2021 TECHNIQUE: Contiguous axial imaging was performed from the skull base to vertex without intravenous administration of contrast. Additional 2-D coronal and sagittal reformatted images are generated on the CT workstation and uploaded to PACS. This CT examination was performed using dose optimization techniques as appropriate, variously including the following: *Automated exposure control *Adjustment of mA and/or kV according to patient size (this includes techniques or standardized protocols for targeted exams where dose is matched to indication/reason for exam; i.e. extremities or head) *Use of iterative reconstruction technique DLP: 559 mGy-cm FINDINGS: There is an acute right frontal intraparenchymal hematoma measuring 1.5 cm in diameter with mild surrounding edema. There is some effacement of the overlying cortical sulci but no midline shift. There is acute subarachnoid hemorrhage seen in the sulci posterior left vertex and within sulci upper left cerebral convexity. Ventricles are normal in size and contour. No intraventricular hemorrhage. No hydrocephalus. Remainder of the wynne-white matter differentiation appears symmetric. There is no visible acute territorial infarct. The calvarium appears intact. There is no pneumocephalus or orbital emphysema. There is no pneumocephalus or orbital emphysema. The middle ears and mastoid air cells are well-aerated and clear. There is mucosal thickening and possibly fluid right frontal sinus with scattered mucosal thickening right ethmoids and opacification right maxillary sinus. This critical result was discussed with Danielle Rasheed PA-C in the emergency department at 1505 hours on 09/11/2021 and it was ascertained that the content and urgency of the report was understood at the time of direct communication. CT/CT head/brain wo con IMPRESSION: 1. Acute right frontal intraparenchymal hematoma 1.5 cm with mild surrounding edema. 2. Acute subarachnoid hemorrhage cortical sulci posterior left vertex and upper left cerebral convexity. 3. No hydrocephalus or midline shift. No intraventricular hemorrhage.
--- NOTE | ~2021-09-11 | XR_ITS ---
EXAMINATION: XR CHEST CLINICAL INFORMATION: Altered mental status COMPARISON: Previous chest x-ray most recent February 2021 TECHNIQUE: Frontal view of the chest was obtained. FINDINGS: The cardiac and mediastinal contours are stable. The lungs are clear. There is no pleural effusion or pneumothorax. There is curvature of the spine and degenerative changes. There is an old right anterior rib fracture. XR/XR chest 1V IMPRESSION: No evidence for acute disease in the chest.
--- NOTE | 2021-09-11 13:04 | ED.AMS ---
HPI - Altered Mental Status General Chief Complaint: Altered Mental Status Stated Complaint: ams Time Seen by Provider: 09/11/21 13:00 Source: patient, RN notes reviewed and old records reviewed Mode of arrival: EMS Limitations: altered mental status History of Present Illness HPI narrative: 66 y/o female with history of chronic back pain on chronic opiates, anxiety, insomnia, asthma, HLD, neuropathy who presents to the ER via EMS with altered mental status. Per EMS patient did not answer her phone when her home health aide went to the house yesterday. On a wellness check she was found to be sleeping but otherwise at her baseline. Today another wellness check was made when she did not answer the door. She was found covered in urine and stool. She was confused. She does have an underlying history of some mild dementia per report. She lives home alone with her dog and has assistance a few times a week. Patient denies any physical complaints aside from thirst. She states she has not eaten anything since Tuesday. She is only oriented to self, cannot tell me the month, year or president. She knows she is in the hospital. MD complaint: confusion Onset (ago): unknown Severity: moderate Consistency of symptoms: getting Worse Associated symptoms: malaise, foul smelling urine, diarrhea and incontinence Related Data Previous Rx's Medication Instructions Recorded SHOWER CHAIR #1 ea 12/11/20 ibuprofen 800 mg tablet 800 mg PO TID PRN #270 cap 04/11/21 zolpidem 10 mg tablet 10 mg PO BEDTIME PRN 30 Days #30 06/05/21 tab simvastatin 5 mg tablet 5 mg PO BEDTIME 90 Days #90 tab 06/26/21 methocarbamol 500 mg tablet 500 mg PO Q8H PRN #90 cap 07/23/21 lorazepam 1 mg tablet 1 mg PO BID PRN 30 Days #60 tab 08/19/21 morphine 60 mg tablet,extended 120 mg PO BID 28 Days #112 tab 08/19/21 release oxycodone-acetaminophen 10 mg-325 1 tab PO BID PRN 28 Days #56 tab 08/19/21 mg tablet pregabalin 150 mg capsule 150 mg PO TID 30 Days #90 cap 08/19/21 albuterol sulfate 90 mcg/actuation 2 puff PO QID PRN 30 Days #8.5 cap 08/24/21 aerosol inhaler Allergies Allergy/AdvReac Type Severity Reaction Status Date / Time No Known Allergies Allergy Verified 08/24/21 14:10 Review of Systems Review of Systems: Constitutional: No Fever, No Chills ENT/Mouth: No sore throat, No Rhinorrhea, No Swallowing Difficulty Eyes: No Eye Pain, No Swelling, No Redness Cardiovascular: No Chest Pain, No SOB, No Orthopnea, No Edema Respiratory: No Cough, No Sputum, No Wheezing, No dyspnea Gastrointestinal: No Nausea, No Vomiting, No Diarrhea, No abdominal Pain, No Hematochezia, No Melena Genitourinary: No Dysuria, No Urinary Frequency, No Hematuria Musculoskeletal: No joint pain, No Myalgias Skin: No Skin Lesions, No rash Neuro: No Weakness, No Numbness, No Dizziness, No Headache Psych: No Anxiety/Panic, No Depression Heme/Lymph: No Bruising, No Lymphadenopathy Endocrine: No Polyuria, No Polydipsia PMFSH Past Medical History Attestation statement: The following information was validated with the patient. Medical History Anxiety Asthma Elevated blood pressure reading Impaired fasting glucose Insomnia Lumbar degenerative disc disease Neuropathy Obesity (BMI 30-39.9) Pure hypercholesterolemia Vitamin D deficiency Surgical History H/O total hysterectomy History of lumbar surgery Family History Family History Father CVD (cardiovascular disease) Mother Cancer Social History Social History Housing: Apartment Alcohol intake: never Patient Tobacco Use Status: Former Tobacco user Second Hand Smoke Exposure: Yes Advance Directives: No Advance Directives Information Provided: No service: No Current occupational status: disabled Physical Exam Vital Signs: Vital Signs: Last Vital Signs Temp 99.3 F 09/11/21 13:37 Pulse 95 09/11/21 18:29 Resp 18 09/11/21 18:29 BP 146/62 H 09/11/21 18:29 Pulse Ox 100 09/11/21 18:29 Body Mass Index 28.3 Appearance: Alert. Oriented X1. No acute distress. Smells of foul smelling urine and stool. Eyes: Pupils equal, round and reactive to light. ENT: Pharynx with dry mucus membranes. No tonsillar swelling or exudate. Uvula midline. Neck: Normal inspection. Neck supple. CVS: Normal heart rate and rhythm. Pulses normal. Respiratory: No respiratory distress. Breath sounds normal. Abdomen: Soft and nontender. +BS x4 Skin: Skin warm and dry. Normal skin color. Normal skin turgor. No rashes. Extremities: No lower extremity edema. Atraumatic x4. Lower extremities with dried liquid stool. Neuro: Oriented X 1. Equal and symmetrical strength throughout. Speaks in complete sentences. No facial droop. No motor deficit. No sensory deficit. CN II-XII grossly intact. Course Course Course Narrative: 66-year-old female with a history of chronic back pain on chronic opiates, asthma, neuropathy, anxiety, obesity, hyper cholesterolemia who presents to the ER with confusion, covered in urine and stool. Temperature 99.3 degrees rectally on arrival. She blood pressure elevated 170/89. Denies a history of hypertension, denies chest pain, headache. Her only complaint is thirst. Concern for UTI, metabolic derangements. Will get metabolic workup, head CT, urinalysis, EKG. Reevaluation(s) Reevaluation #1: [place] [address]. Will empirically treat for possible UTI with Rocephin. Sodium slightly elevated 146 with BUN of 38, most likely related to dehydration. IVF is infusing. Time: 14:48 Reevaluation #2: Received critical read from the radiologist on her head CT-there is a 1.5 cm intraparenchymal hemorrhage with some surrounding edema and a subarachnoid hemorrhage in the left vertex. No midline shift. Patient re-interviewed and denies trauma although she is an unreliable historian. Denies any headache. GCS remains 15. Repeat blood pressure noted to be persistently elevated 175 systolic. Will start nicardipine drip for tight blood pressure control. [facility] called for transfer. Time: 15:23 Reevaluation #3: Spoke with Neurosurgery Dr. Cruz at [facility] - recommending BP control, goal <140 systolic, 1 g IV keppra for seizure prophylaxis and transfer to [facility] Neuro [facility] Unit. Awaiting call from the Hospitalist at [facility] - to transfer once bed available. Nicardipine is starting now. Time: 15:40 Additional Reevaluation(s): Spoke with Hospitalist at [facility] - patient has been accepted. Awaiting bed. 6:45 pm - blood pressure 139/76 on nicardipine infusion at 10 mg an hour. Patient has bed at [facility] to be transferred now. Consultations Consultation #1: [facility] Neurosurgery MDM - Altered Mental Status Lab Data Attestation: I reviewed the patient's lab results. Result diagrams: 09/11/21 14:28 09/11/21 14:28 Labs: Lab Results 09/11/21 09/11/21 09/11/21 Range/Units 14:19 14: 14:28 WBC 20.4 H (4.8-10.8) X10*3/uL RBC 5.70 H (4.20-5.50) X10*6/uL Hgb 15.6 (12.0-16.0) g/dl Hct 46.9 (37.0-47.0) % MCV 82.3 (80.0-98.0) fL MCH 27.4 (27.0-33.0) pg MCHC 33.3 (31.0-35.0) g/dl RDW 13.5 (11.0-16.0) % Plt Count 396 (160-400) X10*3/uL MPV 9.0 L (9.4-12.3) fL Immature Gran % (Auto) 0.8 H (0.0-0.4) % Neut % (Auto) 82.9 H (45-73) % Lymph % (Auto) 10.2 L (20-40) % [place] % (Auto) 5.9 (2-11) % Eos % (Auto) 0.0 (0-4) % Baso % (Auto) 0.2 (0-2) % Lymph # (Auto) 2.1 (1.2-4.9) X10*3/uL [place] # (Auto) 1.2 (0.1-1.2) X10*3/uL Eos # (Auto) 0.0 (0.0-0.4) X10*3/uL Baso # (Auto) 0.1 (0.0-0.2) X10*3/uL Abs Immat Gran (auto) 0.17 H (0.00-0.03) X10*3/uL Absolute Neuts (auto) 16.9 H (2.0-8.3) x10*3/uL Absolute Nucleated RBC 0.000 (0.0-0.012) X10*3/uL Nucleated RBC % (auto) 0.0 (0.0-0.2) /100WBC Sodium (135-145) mmol/L Potassium (3.3-5.1) mmol/L Chloride (96-108) mmol/L Carbon Dioxide (22-29) mmol/L Anion Gap (12-20) BUN (9-16) mg/dL Creatinine (0.5-1.4) mg/dL Estim Creat Clear Calc Estimated GFR Random Glucose (60-115) mg/dL Lactic Acid (0.5-2.0) mmol/L Calcium (8.4-10.2) mg/dL Magnesium (1.6-2.6) mg/dL Total Bilirubin (0.0-1.0) mg/dL Direct Bilirubin (0.0-0.5) mg/dL AST (5-31) U/L ALT (0-31) U/L Alkaline Phosphatase (39-117) U/L Total Protein (6.5-8.0) g/dL Albumin (3.5-5.0) g/dL Urine Color YELLOW Urine Appearance CLEAR Urine pH 6.0 (5.0-8.0) Ur Specific [place] 1.025 (1.005-1.025) Urine Protein 1+ H (NEG-TRACE) MG/DL Urine Glucose (UA) NEG (NEG) MG/DL Urine Ketones 15 (NEG) MG/DL Urine Blood TRACE (NEG) Urine Nitrite NEG (NEG) Ur Leukocyte Esterase NEG (NEG) Urine RBC 0-2 (0) /HPF Urine WBC 0-2 (0-4) /HPF Ur Squamous Epith Cells 1+ /LPF Urine Bacteria NONE /LPF Urine Mucus 1+ /LPF Urine Opiates Screen POSITIVE H (Not Detect) Urine Fentanyl Screen Not Detected (Not Detect) Ur Barbiturates Screen Not Detected (Not Detect) Ur Phencyclidine Scrn Not Detected (Not Detect) Ur Amphetamines Screen Not Detected (Not Detect) U Benzodiazepines Scrn Not Detected (Not Detect) Urine Cocaine Screen Not Detected (Not Detect) U Marijuana (THC) Screen POSITIVE H (Not Detect) Ethyl Alcohol mg/dL COVID-19 ([facility]ISSES) (Negative) COVID-19 Clin Com 09/11/21 09/11/21 09/11/21 Range/Units 14:28 14:28 14:28 WBC (4.8-10.8) X10*3/uL RBC (4.20-5.50) X10*6/uL Hgb (12.0-16.0) g/dl Hct (37.0-47.0) % MCV (80.0-98.0) fL MCH (27.0-33.0) pg MCHC (31.0-35.0) g/dl RDW (11.0-16.0) % Plt Count (160-400) X10*3/uL MPV (9.4-12.3) fL Immature Gran % (Auto) (0.0-0.4) % Neut % (Auto) (45-73) % Lymph % (Auto) (20-40) % [place] % (Auto) (2-11) % Eos % (Auto) (0-4) % Baso % (Auto) (0-2) % Lymph # (Auto) (1.2-4.9) X10*3/uL [place] # (Auto) (0.1-1.2) X10*3/uL Eos # (Auto) (0.0-0.4) X10*3/uL Baso # (Auto) (0.0-0.2) X10*3/uL Abs Immat Gran (auto) (0.00-0.03) X10*3/uL Absolute Neuts (auto) (2.0-8.3) x10*3/uL Absolute Nucleated RBC (0.0-0.012) X10*3/uL Nucleated RBC % (auto) (0.0-0.2) /100WBC Sodium 146 H (135-145) mmol/L Potassium 3.5 D (3.3-5.1) mmol/L Chloride 106 (96-108) mmol/L Carbon Dioxide 23 (22-29) mmol/L Anion Gap 21 H (12-20) BUN 38 H D (9-16) mg/dL Creatinine 0.99 (0.5-1.4) mg/dL Estim Creat Clear Calc 54.1 Estimated GFR 56 Random Glucose 118 H (60-115) mg/dL Lactic Acid 1.5 (0.5-2.0) mmol/L Calcium 10.5 H D (8.4-10.2) mg/dL Magnesium 2.8 H (1.6-2.6) mg/dL Total Bilirubin 0.9 (0.0-1.0) mg/dL Direct Bilirubin 0.4 (0.0-0.5) mg/dL AST 22 (5-31) U/L ALT 18 (0-31) U/L Alkaline Phosphatase 94 (39-117) U/L Total Protein 8.5 H D (6.5-8.0) g/dL Albumin 5.0 D (3.5-5.0) g/dL Urine Color Urine Appearance Urine pH (5.0-8.0) Ur Specific [place] (1.005-1.025) Urine Protein (NEG-TRACE) MG/DL Urine Glucose (UA) (NEG) MG/DL Urine Ketones (NEG) MG/DL Urine Blood (NEG) Urine Nitrite (NEG) Ur Leukocyte Esterase (NEG) Urine RBC (0) /HPF Urine WBC (0-4) /HPF Ur Squamous Epith Cells /LPF Urine Bacteria /LPF Urine Mucus /LPF Urine Opiates Screen (Not Detect) Urine Fentanyl Screen (Not Detect) Ur Barbiturates Screen (Not Detect) Ur Phencyclidine Scrn (Not Detect) Ur Amphetamines Screen (Not Detect) U Benzodiazepines Scrn (Not Detect) Urine Cocaine Screen (Not Detect) U Marijuana (THC) Screen (Not Detect) Ethyl Alcohol mg/dL COVID-19 ([facility]) Negative (Negative) COVID-19 Clin Com See Note 09/11/21 Range/Units 14:28 WBC (4.8-10.8) X10*3/uL RBC (4.20-5.50) X10*6/uL Hgb (12.0-16.0) g/dl Hct (37.0-47.0) % MCV (80.0-98.0) fL MCH (27.0-33.0) pg MCHC (31.0-35.0) g/dl RDW (11.0-16.0) % Plt Count (160-400) X10*3/uL MPV (9.4-12.3) fL Immature Gran % (Auto) (0.0-0.4) % Neut % (Auto) (45-73) % Lymph % (Auto) (20-40) % [place] % (Auto) (2-11) % Eos % (Auto) (0-4) % Baso % (Auto) (0-2) % Lymph # (Auto) (1.2-4.9) X10*3/uL [place] # (Auto) (0.1-1.2) X10*3/uL Eos # (Auto) (0.0-0.4) X10*3/uL Baso # (Auto) (0.0-0.2) X10*3/uL Abs Immat Gran (auto) (0.00-0.03) X10*3/uL Absolute Neuts (auto) (2.0-8.3) x10*3/uL Absolute Nucleated RBC (0.0-0.012) X10*3/uL Nucleated RBC % (auto) (0.0-0.2) /100WBC Sodium (135-145) mmol/L Potassium (3.3-5.1) mmol/L Chloride (96-108) mmol/L Carbon Dioxide (22-29) mmol/L Anion Gap (12-20) BUN (9-16) mg/dL Creatinine (0.5-1.4) mg/dL Estim Creat Clear Calc Estimated GFR Random Glucose (60-115) mg/dL Lactic Acid (0.5-2.0) mmol/L Calcium (8.4-10.2) mg/dL Magnesium (1.6-2.6) mg/dL Total Bilirubin (0.0-1.0) mg/dL Direct Bilirubin (0.0-0.5) mg/dL AST (5-31) U/L ALT (0-31) U/L Alkaline Phosphatase (39-117) U/L Total Protein (6.5-8.0) g/dL Albumin (3.5-5.0) g/dL Urine Color Urine Appearance Urine pH (5.0-8.0) Ur Specific [place] (1.005-1.025) Urine Protein (NEG-TRACE) MG/DL Urine Glucose (UA) (NEG) MG/DL Urine Ketones (NEG) MG/DL Urine Blood (NEG) Urine Nitrite (NEG) Ur Leukocyte Esterase (NEG) Urine RBC (0) /HPF Urine WBC (0-4) /HPF Ur Squamous Epith Cells /LPF Urine Bacteria /LPF Urine Mucus /LPF Urine Opiates Screen (Not Detect) Urine Fentanyl Screen (Not Detect) Ur Barbiturates Screen (Not Detect) Ur Phencyclidine Scrn (Not Detect) Ur Amphetamines Screen (Not Detect) U Benzodiazepines Scrn (Not Detect) Urine Cocaine Screen (Not Detect) U Marijuana (THC) Screen (Not Detect) Ethyl Alcohol < 10 mg/dL COVID-19 ([facility]) (Negative) COVID-19 Clin Com ECG Data ECG #1: Attestation: I personally reviewed and interpreted this ECG as follows: ECG interpretation date: 09/11/21 ECG interpretation time: 15:51 Prior ECG tracings: available for review Interpretation: sinus rhythm, with short [place] interval, nonspecific ST & T wave abnormality, prolonged QTc, artifact present. Critical Care Time Critical Care Time Critical Care Time: Yes Total Critical Care Time: 48 Attestation: I have personally provided critical care time exclusive of time spent on separately billable procedures. Time includes review of lab data, radiology results, discussion with consultants, and monitoring for potential decompensation. Intervention performed as documented. Discharge Plan Discharge Clinical Impression: Subarachnoid hemorrhage, Intraparenchymal hemorrhage of brain, Encephalopathy Patient Disposition: [facility] Transfer Details: [facility] Prescriptions: No Action (DME) SHOWER CHAIR See Rx Instructions .Route .MEDSUPPLY Qty: 1 RF: 0 ibuprofen 800 mg tablet 800 mg PO TID PRN (Reason: pain) Qty: 270 RF: 3 zolpidem 10 mg tablet 10 mg PO BEDTIME PRN (Reason: insomnia) 30 Days Qty: 30 RF: 2 simvastatin 5 mg tablet 5 mg PO BEDTIME 90 Days Qty: 90 RF: 1 methocarbamol 500 mg tablet 500 mg PO Q8H PRN (Reason: for muscle spasm) Qty: 90 RF: 0 morphine 60 mg tablet extended release 120 mg PO BID 28 Days Qty: 112 RF: 0 lorazepam 1 mg tablet 1 mg PO BID PRN (Reason: anxiety) 30 Days Qty: 60 RF: 0 oxycodone-acetaminophen 10-325 mg tablet 1 tab PO BID PRN (Reason: pain) 28 Days Qty: 56 RF: 0 pregabalin 150 mg capsule 150 mg PO TID 30 Days Qty: 90 RF: 1 albuterol sulfate 90 mcg/actuation HFA aerosol inhaler 2 puff PO QID PRN (Reason: shortness of breath or wheezing) 30 Days Qty: 8.5 RF: 5
--- NOTE | 2021-09-11 13:23 | ECG_ITS ---
Test Reason : ALTERED MENTAL STATUS Blood Pressure : / mmHG Vent. Rate : 081 BPM Atrial Rate : 081 BPM P-R Int : 084 ms QRS Dur : 076 ms QT Int : 432 ms P-R-T Axes : 068 051 055 degrees QTc Int : 501 ms Poor data quality Sinus rhythm with short CT Nonspecific ST abnormality Abnormal ECG When compared with ECG of 27-FEB-2021 16:06, ST no longer elevated in Inferior leads QT has lengthened Referred By: Danielle Rasheed Electronically Signed By:SCOTT ORELLANA MD
--- NOTE | 2021-09-11 14:09 | PHA.MEDREC ---
Pharmacy Consult ? Medication Reconciliation Pharmacy has completed the medication reconciliation. Patient has AMS, completed med rec based on claim history. Daniel EdenD
[2021-09-11] MEDS: 0.9 % Sodium Chloride 1,000 ML 999 ML IVCONT (14:37)
[2021-09-11 14:42] LABS: MANUAL DIFF FLAG NO
[2021-09-11 14:44] LABS: Basophils Absolute Auto 0.1 X10*3/uL (0.0-0.2); Basophils Percent Auto 0.2 % (0-2); Hematocrit 46.9 % (37.0-47.0); Hemoglobin 15.6 g/dl (12.0-16.0); Imm Gran Abs Auto 0.17 X10*3/uL (0.00-0.03); Imm Gran Pct Auto 0.8 % (0.0-0.4); Lymphocytes Absolute Auto 2.1 X10*3/uL (1.2-4.9); Lymphocytes Percent Auto 10.2 % (20-40); Mean Corpuscular HGB Conc 33.3 g/dl (31.0-35.0); Mean Corpuscular Hemoglobin 27.4 pg (27.0-33.0); Mean Corpuscular Volume 82.3 fL (80.0-98.0); Monocytes Absolute Auto 1.2 X10*3/uL (0.1-1.2); Monocytes Percent Auto 5.9 % (2-11); Neutrophils Absolute Auto 16.9 x10*3/uL (2.0-8.3); Neutrophils Percent Auto 82.9 % (45-73); Platelet Count 396 X10*3/uL (160-400); Red Cell Distribution Width 13.5 % (11.0-16.0); White Blood Count 20.4 X10*3/uL (4.8-10.8)
[2021-09-11 14:47] LABS: Appearance Urine CLEAR; Color Urine YELLOW; Glucose Urine UA NEG (NEG); Leukocyte Esterase Urine NEG (NEG); Nitrite Urine NEG (NEG); Specific Gravity - Urine 1.025 (1.005-1.025); UACC Culture Trigger NO; Urine Blood TRACE (NEG); Urine Ketones 15 MG/DL (NEG); Urine Protein 1+ MG/DL (NEG-TRACE)
[2021-09-11 14:55] LABS: Lactic Acid 1.5 mmol/L (0.5-2.0)
[2021-09-11 14:56] LABS: Mucus Urine 1+ /LPF; Squamous Epithelial Cell Urine 1+ /LPF
[2021-09-11 14:57] LABS: RBC Urine 0-2 /HPF (0)
[2021-09-11 14:58] LABS: Ethanol < 10 mg/dL
[2021-09-11 14:58] LABS: WBC Urine 0-2 /HPF (0-4)
[2021-09-11 15:00] LABS: Amphetamine Screen Urine Not Detected (Not Detect); Barbiturates, Urine Not Detected (Not Detect); Benzodiazepines Screen Urine Not Detected (Not Detect); Cannabinoid Screen Urine POSITIVE (Not Detect); Cocaine Screen Urine Not Detected (Not Detect); Fentanyl, urine Not Detected (Not Detect); Opiate Screen Urine POSITIVE (Not Detect); Phencyclidine Screen Urine Not Detected (Not Detect)
[2021-09-11 15:01] LABS: Alanine Aminotransferase 18 U/L (0-31); Alkaline Phosphatase 94 U/L (39-117); Anion Gap 21 (12-20); Aspartate Amino Transferase 22 U/L (5-31); Bilirubin Direct 0.4 mg/dL (0.0-0.5); Bilirubin Total 0.9 mg/dL (0.0-1.0); Blood Urea Nitrogen 38 mg/dL (9-16); Calcium 10.5 mg/dL (8.4-10.2); Carbon Dioxide 23 mmol/L (22-29); Chloride 106 mmol/L (96-108); Creatinine Clr Calc Pharmacy 54.1; Estimated Glomerular Filt Rate 56; Glucose Random 118 mg/dL (60-115); Magnesium 2.8 mg/dL (1.6-2.6); Potassium 3.5 mmol/L (3.3-5.1); Sodium 146 mmol/L (135-145); Total Protein 8.5 g/dL (6.5-8.0)
[2021-09-11 15:04] LABS: COVID-19 Test Negative (Negative); IDNOW Serial# 9DD0AD1C
[2021-09-11] MEDS: levETIRAcetam in NaCl (iso-os) 1,000 MG/100 ML PIGGYBACK 400 MG IV (15:40)
[2021-09-11] MEDS: niCARdipine HCL 25 MG in 0.9 % Sodium Chloride 250 ML 5.2 MG IVCONT (15:42)
--- NOTE | 2021-09-11 16:49 | MHC.STROKE ---
09/11/21 1255 EMS PRE-NOTIFICATION, NO STROKE ALERT. UNKNOWN ONSET BUT OCCURRED SOMETIME BETWEEN 09/07 AND TODAY. SEEN BY PROVIDER, BP 170/89. CT HEAD ORDERED. + HEMATOMA AND SAH SEE REPORT. NOT ON ANY BLOOD THINNERS. NIHSS = 1 LOC TIME/DAY/YEAR. KEEP NPO, [facility],
[2021-09-11] MEDS: cefTRIAXone sodium 1 GM in 0.9 % Sodium Chloride 50 ML IV (18:06)
[2021-09-11] MEDS: niCARdipine HCL 25 MG in 0.9 % Sodium Chloride 250 ML 104 MG IVCONT ×2 (19:01→22:06)
--- NOTE | 2021-09-11 23:12 | PC.NURSE ---
called report to [facility] Neuro ICU
== END 2021-09-11 23:30 | disposition short-term general hospital (02) ==
PROVIDERS: Physician Assistant; Emergency Provider Emergency Medicine; PCP Internal Medicine
DX: I60.9 Nontraumatic subarachnoid hemorrhage, unspecified (principal); I62.9 Nontraumatic intracranial hemorrhage, unspecified; G93.49 Other encephalopathy; R03.0 Elevated blood-pressure reading, without diagnosis of hypertension; R50.9 Fever, unspecified; R53.81 Other malaise; E66.9 Obesity, unspecified; E78.00 Pure hypercholesterolemia, unspecified; G89.29 Other chronic pain; M54.9 Dorsalgia, unspecified; Z79.891 Long term (current) use of opiate analgesic; Z20.822 Contact with and (suspected) exposure to COVID-19
CPT/HCPCS: 36415; 70450; 71045; 80048; 80076; 80307; 81001; 82077; 83605; 83735; 85025; 87040; 87635; 93005; 96361; 96365; 96366; 96367; 96375; 99285; 99291; J0696; J1953

== ENCOUNTER 2021-12-04 10:55 | Outpatient (REF) | payer OTHER, SELFPAY ==
[2021-12-04 14:11] LABS: MANUAL DIFF FLAG NO
[2021-12-04 14:15] LABS: Basophils Absolute Auto 0.1 X10*3/uL (0.0-0.2); Eosinophils Absolute Auto 0.2 X10*3/uL (0.0-0.4); Eosinophils Percent Auto 2.3 % (0-4); Hematocrit 36.9 % (37.0-47.0); Hemoglobin 11.8 g/dl (12.0-16.0); Imm Gran Abs Auto 0.01 X10*3/uL (0.00-0.03); Imm Gran Pct Auto 0.1 % (0.0-0.4); Lymphocytes Absolute Auto 1.5 X10*3/uL (1.2-4.9); Lymphocytes Percent Auto 21.2 % (20-40); Mean Corpuscular Hemoglobin 27.2 pg (27.0-33.0); Mean Platelet Volume 10.5 fL (9.4-12.3); Monocytes Absolute Auto 0.6 X10*3/uL (0.1-1.2); Monocytes Percent Auto 8.1 % (2-11); Neutrophils Absolute Auto 4.6 x10*3/uL (2.0-8.3); Neutrophils Percent Auto 67.3 % (45-73); Platelet Count 248 X10*3/uL (160-400); Red Blood Count 4.34 X10*6/uL (4.20-5.50); Red Cell Distribution Width 13.2 % (11.0-16.0); White Blood Count 6.9 X10*3/uL (4.8-10.8)
[2021-12-04 14:22] LABS: Estimated Average Glucose 105 mg/dL; Hemoglobin A1c % 5.3 %
[2021-12-04 14:24] LABS: Appearance Urine CLEAR; Color Urine YELLOW; Glucose Urine UA NEG (NEG); Leukocyte Esterase Urine NEG (NEG); Nitrite Urine NEG (NEG); PH 5.5 (5.0-8.0); UACC Culture Trigger NO; Urine Blood TRACE (NEG); Urine Ketones NEG (NEG); Urine Protein NEG (NEG-TRACE)
[2021-12-04 14:29] LABS: Alanine Aminotransferase 14 U/L (0-31); Albumin Level 4.3 g/dL (3.5-5.0); Alkaline Phosphatase 87 U/L (39-117); Anion Gap 13 (12-20); Aspartate Amino Transferase 20 U/L (5-31); Bilirubin Total 0.5 mg/dL (0.0-1.0); Blood Urea Nitrogen 16 mg/dL (9-16); Calcium 9.3 mg/dL (8.4-10.2); Carbon Dioxide 26 mmol/L (22-29); Chloride 107 mmol/L (96-108); Estimated Glomerular Filt Rate > 60; Glucose Random 99 mg/dL (60-115); Potassium 3.6 mmol/L (3.3-5.1); Sodium 142 mmol/L (135-145); Total Protein 6.7 g/dL (6.5-8.0)
[2021-12-04 14:46] LABS: RBC Urine 0-2 /HPF (0); Squamous Epithelial Cell Urine 1+ /LPF; WBC Urine 0-2 /HPF (0-4)
[2021-12-04 14:48] LABS: Urine Talc Crystals TRACE /LPF
[2021-12-04 14:51] LABS: TSH reflex Free T4 0.73 uIU/mL (0.32-4.0); Vitamin D 25-OH Total 17.5 ng/mL (>30)
[2021-12-04 15:01] LABS: Folate 4.3 ng/mL (> or = 4.0); Vitamin B12 506 pg/mL (200-900)
[2021-12-11 08:16] LABS: Levetiracetam Keppra 20.2 mcg/mL (12.0-46.0)
== END 2021-12-04 10:56 | disposition home or self-care (01) ==
LOC: HO.HMGCLDS 10:55
PROVIDERS: Visit Provider Internal Medicine
DX: I10 Essential (primary) hypertension (principal); I60.9 Nontraumatic subarachnoid hemorrhage, unspecified; R73.01 Impaired fasting glucose; E78.00 Pure hypercholesterolemia, unspecified; G62.9 Polyneuropathy, unspecified; E55.9 Vitamin D deficiency, unspecified
CPT/HCPCS: 36415; 80053; 80177; 81001; 82306; 82607; 82746; 83036; 84443; 85025

== ENCOUNTER 2022-09-24 11:00 | Outpatient (REF) | payer OTHER, SELFPAY ==
[2022-09-24 14:07] LABS: MANUAL DIFF FLAG NO
[2022-09-24 14:15] LABS: Basophils Absolute Auto 0.1 X10*3/uL (0.0-0.2); Basophils Percent Auto 0.8 % (0-2); Eosinophils Absolute Auto 0.1 X10*3/uL (0.0-0.4); Eosinophils Percent Auto 1.5 % (0-4); Hemoglobin 13.7 g/dl (12.0-16.0); Imm Gran Abs Auto 0.02 X10*3/uL (0.00-0.03); Imm Gran Pct Auto 0.3 % (0.0-0.4); Lymphocytes Absolute Auto 1.9 X10*3/uL (1.2-4.9); Lymphocytes Percent Auto 23.7 % (20-40); Mean Corpuscular HGB Conc 31.9 g/dl (31.0-35.0); Mean Corpuscular Hemoglobin 26.4 pg (27.0-33.0); Mean Corpuscular Volume 82.9 fL (80.0-98.0); Mean Platelet Volume 9.9 fL (9.4-12.3); Monocytes Absolute Auto 0.6 X10*3/uL (0.1-1.2); Neutrophils Absolute Auto 5.2 x10*3/uL (2.0-8.3); Neutrophils Percent Auto 65.7 % (45-73); Platelet Count 242 X10*3/uL (160-400); Red Blood Count 5.19 X10*6/uL (4.20-5.50); Red Cell Distribution Width 13.1 % (11.0-16.0); White Blood Count 7.9 X10*3/uL (4.8-10.8)
[2022-09-24 14:18] LABS: Appearance Urine Clear; Color Urine Yellow; Glucose Urine UA Negative (Negative); Leukocyte Esterase Urine Negative (Negative); Nitrite Urine Negative (Negative); PH 5.5 (5.0-9.0); Urine Blood Negative (Negative); Urine Ketones Negative (Negative); Urine Protein Negative (Neg-Trace)
[2022-09-24 14:47] LABS: Alanine Aminotransferase 17 U/L (0-31); Albumin Level 4.6 g/dL (3.5-5.0); Alkaline Phosphatase 97 U/L (39-117); Anion Gap 15 (12-20); Aspartate Amino Transferase 18 U/L (5-31); Blood Urea Nitrogen 19 mg/dL (9-16); Calcium 9.4 mg/dL (8.4-10.2); Carbon Dioxide 27 mmol/L (22-29); Chloride 105 mmol/L (96-108); Cholesterol 231 mg/dL; Estimated Glomerular Filt Rate > 60; Glucose Fasting 94 mg/dL (60-99); HDL Cholesterol 31 mg/dL; LDL Cholesterol Calculated 178 mg/dl; Potassium 4.1 mmol/L (3.3-5.1); Sodium 143 mmol/L (135-145); Total Protein 7.4 g/dL (6.5-8.0); Triglycerides 112 mg/dL
[2022-09-24 15:42] LABS: TSH reflex Free T4 1.47 uIU/mL (0.32-4.0)
== END 2022-09-24 11:01 | disposition home or self-care (01) ==
LOC: HO.HMGCLDS 11:00
PROVIDERS: PCP Internal Medicine; Visit Provider Internal Medicine
DX: I10 Essential (primary) hypertension (principal); E78.00 Pure hypercholesterolemia, unspecified
CPT/HCPCS: 36415; 80053; 80061; 81003; 84443; 85025

== ENCOUNTER 2023-03-07 12:22 | Outpatient (REF) | payer OTHER, SELFPAY ==
[2023-03-07 13:52] LABS: MANUAL DIFF FLAG NO
[2023-03-07 13:55] LABS: Appearance Urine Clear; Color Urine Yellow; Glucose Urine UA Negative (Negative); Leukocyte Esterase Urine Trace (Negative); Nitrite Urine Negative (Negative); PH 5.5 (5.0-9.0); Specific Gravity - Urine 1.015 (1.005-1.025); UMIC TRIGGER UACC YES; Urine Blood Negative (Negative); Urine Ketones Negative (Negative); Urine Protein Negative (Neg-Trace)
[2023-03-07 13:57] LABS: Basophils Absolute Auto 0.1 X10*3/uL (0.0-0.2); Eosinophils Absolute Auto 0.2 X10*3/uL (0.0-0.4); Eosinophils Percent Auto 2.6 % (0-4); Hematocrit 40.3 % (37.0-47.0); Hemoglobin 13.7 g/dl (12.0-16.0); Imm Gran Abs Auto 0.02 X10*3/uL (0.00-0.03); Imm Gran Pct Auto 0.2 % (0.0-0.4); Lymphocytes Absolute Auto 1.9 X10*3/uL (1.2-4.9); Lymphocytes Percent Auto 21.4 % (20-40); Mean Corpuscular Hemoglobin 27.9 pg (27.0-33.0); Mean Corpuscular Volume 82.1 fL (80.0-98.0); Mean Platelet Volume 9.8 fL (9.4-12.3); Monocytes Absolute Auto 0.8 X10*3/uL (0.1-1.2); Monocytes Percent Auto 8.5 % (2-11); Neutrophils Absolute Auto 5.9 x10*3/uL (2.0-8.3); Neutrophils Percent Auto 66.3 % (45-73); Platelet Count 210 X10*3/uL (160-400); Red Blood Count 4.91 X10*6/uL (4.20-5.50); White Blood Count 8.9 X10*3/uL (4.8-10.8)
[2023-03-07 14:06] LABS: Bacteria Urine None Seen (None Seen); Hyaline Casts Urine 0-2 /LPF (0-2); RBC Urine 0-2 /HPF (0-2); Squamous Epithelial Cell Urine 0-2 /HPF (0-2); UACC Culture Trigger YES
[2023-03-07 14:11] LABS: Estimated Average Glucose 105 mg/dL; Hemoglobin A1C 128.0066 umol/L; Hemoglobin A1c % 5.3 %
[2023-03-07 14:15] LABS: Alanine Aminotransferase 13 U/L (0-31); Albumin Level 4.6 g/dL (3.5-5.0); Alkaline Phosphatase 95 U/L (39-117); Anion Gap 19 (12-20); Aspartate Amino Transferase 16 U/L (5-31); Bilirubin Total 0.9 mg/dL (0.0-1.0); Blood Urea Nitrogen 21 mg/dL (9-16); Calcium 9.8 mg/dL (8.4-10.2); Carbon Dioxide 23 mmol/L (22-29); Chloride 108 mmol/L (96-108); Cholesterol 147 mg/dL; Estimated Glomerular Filt Rate > 60; Glucose Fasting 95 mg/dL (60-99); HDL Cholesterol 31 mg/dL; LDL Cholesterol Calculated 91 mg/dl; Potassium 4.9 mmol/L (3.3-5.1); Sodium 145 mmol/L (135-145); Total Protein 7.1 g/dL (6.5-8.0); Triglycerides 127 mg/dL
[2023-03-07 14:31] LABS: TSH reflex Free T4 1.37 uIU/mL (0.32-4.0); Vitamin D 25-OH Total 25.4 ng/mL (>30)
== END 2023-03-07 12:23 | disposition home or self-care (01) ==
LOC: HO.HMGCLDS 12:22
PROVIDERS: PCP Internal Medicine; Visit Provider Internal Medicine
DX: I10 Essential (primary) hypertension (principal); E78.00 Pure hypercholesterolemia, unspecified; R73.01 Impaired fasting glucose; E55.9 Vitamin D deficiency, unspecified; R82.90 Unspecified abnormal findings in urine
CPT/HCPCS: 36415; 80053; 80061; 81001; 82306; 83036; 84443; 85025; 87086

== ENCOUNTER 2023-06-13 12:26 | Outpatient (REF) | payer OTHER, SELFPAY ==
[2023-06-13 17:29] LABS: Alanine Aminotransferase 15 U/L (0-31); Albumin Level 4.1 g/dL (3.5-5.0); Alkaline Phosphatase 78 U/L (39-117); Anion Gap 10 (12-20); Aspartate Amino Transferase 19 U/L (5-31); Bilirubin Total 0.5 mg/dL (0.0-1.0); Blood Urea Nitrogen 23 mg/dL (9-16); Calcium 9.7 mg/dL (8.4-10.2); Carbon Dioxide 28 mmol/L (22-29); Chloride 107 mmol/L (96-108); Cholesterol 190 mg/dL (<200); Estimated Glomerular Filt Rate > 60; Glucose Fasting 91 mg/dL (60-99); HDL Cholesterol 35 mg/dL (>40); LDL Cholesterol Calculated 134 mg/dL (<100); Potassium 4.6 mmol/L (3.3-5.1); Sodium 140 mmol/L (135-145); Total Protein 6.8 g/dL (6.5-8.0); Triglycerides 105 mg/dL (<150)
[2023-06-13 17:47] LABS: Vitamin D 25-OH Total 32.6 ng/mL (>30)
== END 2023-06-13 12:27 | disposition home or self-care (01) ==
LOC: HO.HMGCLDS 12:26
PROVIDERS: PCP Internal Medicine; Visit Provider Nurse Practitioner Family
DX: E55.9 Vitamin D deficiency, unspecified (principal); E78.00 Pure hypercholesterolemia, unspecified; I10 Essential (primary) hypertension
CPT/HCPCS: 36415; 80053; 80061; 82306

== ENCOUNTER 2023-06-17 10:03 | Outpatient (AMB) | payer OTHER, SELFPAY ==
[2023-06-17 10:14] VITALS: BP 156/98; PULSE 99; O2SAT 94; BMI 35.9
--- NOTE | 2023-06-17 10:14 | A.OFFPC_ITS ---
Vital Signs 06/17/23 10:14 06/17/23 10:54 Height 5 ft 1 in Weight 190 lb 4 oz BMI 35.9 BP 156/98 H 127/83 Blood Pressure Location Lt brachial Lt brachial Position Sitting Sitting Pulse 99 Pulse Source Pulse Oximeter Pulse Oximetry (%) 94 Oxygen Delivery Method Room Air Comment done at home earlier today - patient has WHITE COAT SYNDROME Intake Visit Reasons: 3 month f/u Plumbing Service Technician Required: No Accompanied by: Self / Same As Patient Allergies No Known Allergies Allergy (Verified 06/17/23 10:53) Medication List - Last Reconciled 06/17/23 by Nahid Tilley MD albuterol sulfate 90 mcg/actuation 2 puffs PO QID PRN amlodipine 10 mg PO DAILY atorvastatin 20 mg PO DAILY blood pressure monitor As directed cholecalciferol (vitamin D3) 25 mcg PO DAILY compr.stocking,knee,long,large As directed ibuprofen 800 mg PO TID PRN levetiracetam 500 mg PO BID lorazepam 1 mg PO BID PRN 30 days methocarbamol 500 mg PO Q8H PRN morphine ER 120 mg (2 x 60 mg) PO BID 28 days oxycodone-acetaminophen 10-325 mg 1 tab PO BID PRN 28 days pregabalin 150 mg PO TID 30 days [SHOWER CHAIR SHOWER CHAIR - Use as directed] trazodone 25 mg (1/2 x 50 mg) PO BEDTIME PRN verapamil 40 mg PO TID 90 days Tobacco use date assessed: 06/17/23 Fall risk assessment: No Falls in past year Last assessed Fall Risk: 06/17/23 Dental Screening Dental Screen Date: 06/17/23 Did you have a dental visit in the last 12 months?: No Did you have a dental problem in the last 6 months where you did not have access to dental care?: No Was dental information given to patient?: No HPI 3 month f/u HPI Details Patient comes in today for her follow up visit States that she still has chronic pain over her lower back and coming into the office in-person always takes a lot out of her so her blood pressure is often much higher when she comes into the office Relates that she checked her BP at home earlier this morning and it was at 127/83 mm States that she still has trouble sleeping at night - has had problem sleeping for a long time now Was taking up to 2 tablets of her Trazodone 50 mg in the past and states that even that does not make her sleepy She also admits now that because her blood pressure at home is almost always much lower than her numbers when she comes in here, she is NOT really taking her Amlodipine 10 mg QD or Verapamil 40 mg TID regularly over the past couple of years and has been taking them only as needed when her blood pressure readings at home run high She denies any headaches or dizziness Denies any chest pains, no SOB No nausea/vomiting, no abdominal pain No change in bowel habits noted Had her follow up labs done a few days ago - to discuss her results [facility] Medical History Anxiety Asthma Benign essential hypertension Impaired fasting glucose Insomnia Lumbar degenerative disc disease Neuropathy Obesity (BMI 30-39.9) Pure hypercholesterolemia Vitamin D deficiency Surgical History H/O total hysterectomy History of lumbar surgery Family History Father CVD (cardiovascular disease) Mother Cancer Social History Housing: Apartment Alcohol intake: never Patient Tobacco Use Status: Former Tobacco user e-Cigarette/Vaping Use: Never Used Second Hand Smoke Exposure: Yes service: No Current occupational status: disabled Cognitive needs: No Hearing needs: No Vision needs: No Questionnaire PHQ-9 Over the last 2 weeks, how often have you been bothered by any of the following problems? 1. Little interest or pleasure in doing things: not at all 2. Feeling down, depressed, or hopeless: not at all 3. Trouble falling or staying asleep, or sleeping too much: not at all 4. Feeling tired or having little energy: not at all 5. Poor appetite or overeating: not at all 6. Feeling bad about yourself - or that you are a failure or have let yourself or your family down: not at all 7. Trouble concentrating on things, such as reading the newspaper or watching television: not at all 8. Moving or speaking so slowly that other people could have noticed. Or the opposite - being so fidgety or restless that you have been moving around a lot more than usual: not at all 9. Thoughts that you would be better off or of hurting yourself in some way: not at all Total score: 0 Depression Screening Interpretation: Negative 18498 - PHQ-9 Billing: Yes Source: Developed by Drs. Juan Larson, Maile Arzate, Trung Durbin and colleagues, with an educational chioma from [employer]. Thrive Questionnaire Date Thrive assessed: 06/17/23 I am a: Patient What is your living situation today?: I have a steady place to live Within the past 12 months, did the food you bought not last and you didn't have the money to get more?: Never true Within the past 12 months, did you worry whether your food would run out before you got money to buy more?: Never true Do you have trouble paying for medicines?: No Do you have trouble getting transportation to medical appointments?: No Do you have trouble paying your heating and electricity bill?: No Do you have trouble taking care of your child, family member or friend?: No Do you have trouble with day-to-day activities such as bathing, preparing meals, shopping, managing finances, etc.?: No Are you currently unemployed and looking for a job?: No Are you interested in more education?: No Please select the resources that you would like help with: None Currently or been in a relationship where the following occur: no concerns reported AUDIT C Alcohol Use Questionnaire (AUDIT-C) 1. How often do you have a drink containing alcohol?: Never 3. How often do you have six or more drinks on one occasion?: Never Total Score: 0 Score Reviewed/Action Taken: Yes HAILY-7 AMB Questionnaire HAILY-7 Date HAILY - 7 assessed: 06/17/23 Feeling nervous, anxious, or on edge: 0 = Not at all Not being able to stop or control worryin = Not at all Worrying too much about different things: 0 = Not at all Trouble relaxin = Not at all Being so restless that it is hard to sit still: 0 = Not at all Becoming easily annoyed or irritable: 0 = Not at all Feeling afraid as if something awful might happen: 0 = Not at all Total HAILY-7 score (0-4 normal; 5-9 mild; 10-14 moderate; 15-21 severe): 0 Source: Developed by Drs. Juan Larson, Maile Arzate, Trung Durbin and colleagues, with an educational chioma from [employer]. HAILY-7 Assessment Billing HAILY-7 Assessment Tool: HAILY-7 Assessment 13151 Review of Systems Const Denies chills, Reports difficulty sleeping, Reports fatigue, Denies fever(s) and Denies headache(s) ENT Denies dysphagia, Denies dizziness, Denies otalgia, Denies headache(s), Denies neck pain, Denies odynophagia and Denies sore throat Card Denies chest pain, Denies palpitations and Denies dyspnea Resp Denies cough and Denies dyspnea GI Denies abdominal pain, Denies constipation, Denies dysphagia, Denies heartburn, Denies diarrhea, Denies nausea, Denies odynophagia and Denies vomiting Denies difficulty voiding, Denies nocturia and Denies dysuria Musc Denies abnormal gait, Reports back pain (over the lower back - chronic), Denies muscle weakness, Denies neck pain and Reports stiffness (over the lower back) Skin/Breast Denies rash Neuro Denies abnormal gait, Denies dizziness, Denies headache(s) and Reports radicular pain (into both lower extremities) Psych Reports anxiety and Reports irritability (at times) Endo Reports fatigue and Denies palpitations Physical exam (Primary Care) Vital Signs: Last Vital Signs Pulse 99 06/17/23 10:14 BP 156/98 H 06/17/23 10:14 Pulse Ox 94 06/17/23 10:14 Oxygen Delivery Method Room Air 06/17/23 10:14 BMI result Body Mass Index 35.9 Tobacco/Smoking Status: Tobacco use Status Tobacco use date assessed 06/17/23 06/17/23 10:19 Patient Tobacco Use Status Former Tobacco user 06/17/23 10:19 e-Cigarette/Vaping Use Never Used 06/17/23 10:19 PHQ-9: PHQ-9 Score PHQ-9: Total score 0 06/17/23 10:19 Depression Screening Interpretation: Negative Thrive Assessment: Date of Thrive Assessment Date Thrive assessed 06/17/23 06/17/23 10:19 Currently or been in a relationship where the following occur: no concerns reported Const General: no acute distress and alert HENMT Ears: TM's normal bilaterally and EAC's normal Throat: Yes posterior oropharynx normal and Yes tonsils normal (no TP congestion) Neck Neck: Yes no lymphadenopathy and Yes supple Resp Auscultation: clear to auscultation bilaterally, no rales and no wheezes Cardio Rate: regular rate Rhythm: regular rhythm Heart sounds: no murmurs GI Palpation (GI): Soft to palpation and nontender Auscultation: normal bowel sounds Back/Spine/Pelvis Thoracic/Lumbar Spine: lumbar spinal tenderness Skin Rashes: no rashes Extrem General: Yes no clubbing, cyanosis or edema Results Reviewed Results Reviewed: Laboratory Tests 06/13/23 13:00 Sodium 140 Potassium 4.6 Creatinine 0.93 Estimated GFR > 60 Fasting Glucose 91 Calcium 9.7 AST 19 ALT 15 Triglycerides 105 Cholesterol 190 LDL Cholesterol, Calc 134 H HDL Cholesterol 35 L 25-OH Vitamin D Total 32.6 Assessment and Plan Assessment & Plan (1) Subarachnoid hemorrhage: Code(s): I60.9 - Nontraumatic subarachnoid hemorrhage, unspecified Plan: Patient has NO apparent residual neurologic symptoms from her CVA Initial head CT in August 2021 revealed (+) acute 1.5 cm right frontal intraparenchymal hematoma with mild surrounding edema; acute subarachnoid hemorrhage in the cortical sulci along the posterior left vertex and upper left cerebral convexity. 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 Vasculitis work ups were all unremarkable Continue Keppra 500 mg BID; is advised to continue monitoring her BP regularly Was previously referred to neurology for further evaluation and management but she could not keep her original appointment; appt was rescheduled to 12/31/2021 but it appears that she never went for her appt then as we have not received any report from neurology since (2) Benign essential hypertension: Code(s): I10 - Essential (primary) hypertension Plan: Reinforced low sodium diet - goal is systolic BP of 140 mm or less Was supposed to be taking Verapamil 40 mg TID and more recently, Amlodipine 10 mg QD was somehow added although it is unusual to be on 2 different CCB at the same time for hypertension Based on review of her Rx refills, she does not appear to be refilling her prescriptions regularly and patient now admits that she does not take her BP meds everyday regularly as her blood pressure is often normal when she checks it at home, with systolic BP often in the 120 mm range or lower States that she only takes her Rx when her BP is high when it is checked, which is only occasionally As her recent labs do not show any evidence of end-organ damage from uncontrolled HTN, perhaps the patient does have actual white-coat syndrome WIll have her start monitoring her blood pressure at home regularly and instructed to keep a BP diary and to bring in her BP diary when she returns in 3 months for her follow up visit so we can review them Will then make a decision on what to do about her blood pressure Advised that in the meantime, she can HOLD off on taking her BP meds (3) Pure hypercholesterolemia: Code(s): E78.00 - Pure hypercholesterolemia, unspecified Plan: Results of her labs done a few days ago reviewed and discussed with patient Advised that her cholesterol numbers have increased again from previous and she has gone up custodial from what she lost (significantly) at her last visit Patient admits again to poor compliance with her diet over the past few months Reinforced low cholesterol diet Continue Atorvastatin 20 mg QD Will have patient recheck her labs and fasting lipids again in 3 months for follow up (4) Impaired fasting glucose: Code(s): R73.01 - Impaired fasting glucose Plan: HgbA1c was normal at 5.3% when checked a few times previously Reinforced low calorie diet/exercise as tolerated (5) Asthma: Code(s): J45.909 - Unspecified asthma, uncomplicated Qualifiers: Asthma severity: mild Asthma persistence: intermittent Asthma complication type: uncomplicated Qualified Code(s): J45.20 - Mild intermittent asthma, uncomplicated Plan: Stable - continue Albuterol HFA 2 puffs 4 times a day as needed (6) Lumbar degenerative disc disease: Code(s): M51.36 - Other intervertebral disc degeneration, lumbar region Plan: Reinforced activity and weight lifting restrictions to avoid aggravating her back pain Continue Lyrica 150 mg 3 times a day, Ibuprofen 800 mg 3 times a day with food as needed, Methocarbamol 500 mg every 8 hours as needed, Oxycodone-Acetaminophen 10-325 mg twice a day as needed for pain, 28 days, #56 tablets, Refills 0,? and Morphine ER 60 mg 2 tablets twice a day, 28 days, #112 tablets, Refills 0 (7) Neuropathy: Code(s): G62.9 - Polyneuropathy, unspecified Plan: States that Lasha is helping with her symptoms of neuropathy (8) Vitamin D deficiency: Code(s): E55.9 - Vitamin D deficiency, unspecified Plan: Continue Vitamin D3 2000 units QD (9) Insomnia: Code(s): G47.00 - Insomnia, unspecified Qualifiers: Insomnia type: primary Qualified Code(s): F51.01 - Primary insomnia Plan: Sleep hygiene reinforced Zolpidem was discontinued recently due to her encephalopathy Was on Trazodone 50 mg 1/2 to 1 tableyt Q HS - states that she even went up to 100 mg Q HS recently with no relief WIll try increasing this now to 150 mg Q HS PRN (10) Anxiety: Code(s): F41.9 - Anxiety disorder, unspecified Plan: Continue Lorazepam 1 mg twice a day as needed (11) Obesity (BMI 30-39.9): Code(s): E66.9 - Obesity, unspecified Plan: Reinforced diet and lose weight; exercise is unrealistic given patient's physical incapacities and her recent CVA Plan Follow up in 3 months Orders: Orders Comprehensive [place]. Panel Fast 3 Months E78.00 - Pure hypercholesterolemia, unspecified Lipid Panel 3 Months E78.00 - Pure hypercholesterolemia, unspecified TSH reflex Free T4 3 Months E78.00 - Pure hypercholesterolemia, unspecified Vitamin D 25-OH Total 3 Months E55.9 - Vitamin D deficiency, unspecified Complete Blood Count Auto Diff 3 Months I10 - Essential (primary) hypertension UA CC w/rflx Micro + Cult 3 Months R30.0 - Dysuria Levetiracetam Keppra 3 Months G40.909 - Epilepsy, unspecified, not intractable, without status epilepticus Medications: Changed From trazodone 25 mg (1/2 x 50 mg) PO BEDTIME PRN 30 tabs 0RF sleep To trazodone 150 mg PO BEDTIME 30 days PRN 30 tabs 2RF insomnia Coding Level of Care Code Est Pt Level 4 (78676) Diagnoses Subarachnoid hemorrhage I60.9 Benign essential hypertension I10 Pure hypercholesterolemia E78.00 Impaired fasting glucose R73.01 Asthma J45.20 Asthma severity: mild Asthma persistence: intermittent Asthma complication type: uncomplicated Lumbar degenerative disc disease M51.36 Neuropathy G62.9 Vitamin D deficiency E55.9 Insomnia F51.01 Insomnia type: primary Anxiety F41.9 Obesity (BMI 30-39.9) E66.9 Additional Codes HAILY-7 Assessment Billing - HAILY-7 Assessment Tool: HAILY-7 Assessment [id number] ([id number])
[2023-06-17 10:54] VITALS: BP 127/83
== END 2023-06-17 11:07 | disposition home or self-care (01) ==
PROVIDERS: Visit Provider Internal Medicine
DX: I10 Essential (primary) hypertension (principal); J45.20 Mild intermittent asthma, uncomplicated; E55.9 Vitamin D deficiency, unspecified; F41.9 Anxiety disorder, unspecified; I60.9 Nontraumatic subarachnoid hemorrhage, unspecified; E78.00 Pure hypercholesterolemia, unspecified; R73.01 Impaired fasting glucose; G62.9 Polyneuropathy, unspecified; M51.36 Other intervertebral disc degeneration, lumbar region; F51.01 Primary insomnia; E66.9 Obesity, unspecified
CPT/HCPCS: 99214

== ENCOUNTER 2023-10-03 10:39 | Outpatient (AMB) | payer OTHER, SELFPAY ==
[2023-10-03 10:41] VITALS: BP 160/92; PULSE 96; O2SAT 94; BMI 36.7
--- NOTE | 2023-10-03 10:41 | MHC.PC.OV ---
Vital Signs 10/03/23 10:41 Height 5 ft 1 in Weight 194 lb 6 oz BMI 36.7 BP 160/92 H Blood Pressure Location Lt brachial Position Sitting Pulse 96 Pulse Source Pulse Oximeter Pulse Oximetry (%) 94 Oxygen Delivery Method Room Air Intake Visit Reasons: hyperlipidemia, HTN Maintenance Person Required: No Accompanied by: Self / Same As Patient Allergies No Known Allergies Allergy (Verified 10/03/23 11:16) Medication List - Last Reconciled 10/03/23 by Nahid Tilley MD albuterol sulfate 90 mcg/actuation 2 puffs PO QID PRN amlodipine 10 mg PO DAILY atorvastatin 20 mg PO DAILY blood pressure monitor As directed cholecalciferol (vitamin D3) 25 mcg PO DAILY compr.stocking,knee,long,large As directed ibuprofen 800 mg PO TID PRN levetiracetam 500 mg PO BID lorazepam 1 mg PO BID PRN 30 days methocarbamol 500 mg PO Q8H PRN morphine ER 120 mg (2 x 60 mg) PO BID 28 days oxycodone-acetaminophen 10-325 mg 1 tab PO BID PRN 28 days pregabalin 150 mg PO TID 30 days [SHOWER CHAIR SHOWER CHAIR - Use as directed] trazodone 150 mg PO BEDTIME PRN 30 days Tobacco use date assessed: 10/03/23 Fall risk assessment: No Falls in past year Last assessed Fall Risk: 10/03/23 Dental Screening Dental Screen Date: 10/03/23 Did you have a dental visit in the last 12 months?: No Did you have a dental problem in the last 6 months where you did not have access to dental care?: No Was dental information given to patient?: No HPI hyperlipidemia, HTN HPI Details Patient comes in today for her follow up visit States that she currently feels okay Has had some cough/cold symptoms that started a couple of days ago Relates (+) sore throat but denies any fever, headaches or dizziness She denies any chest pains, no SOB although she reports (+) on and off cough with occasional clear to whitish phlegm coughed up No nausea/vomiting, no abdominal pain No change in bowel habits noted States that her chronic low back pain and joint pains are mostly adequately controlled on her current Rx but states that she was in a lot of pain for a while after Thanksgiving as she did a lot of cooking in preparation for Thanksgiving and was on her feet a lot more than usual Relates that her blood pressure was running high often for a while around that time due to her increased pain States that her BP readings have come down a lot lately but they still go up often when she is in more pain than usual BP was at 128/72 mm yesterday; was also at 128/75 and 132/72 last week on 09/26/23 States that her systolic BP was running high from 150 to 160 mm earlier this month when she was in a lot of pain Was not able to get her follow up labs done yet and plans to go to the lab right after her visit today to get them done Would also like to get a flu shot today if possible [facility] Medical History Benign essential hypertension Obesity (BMI 30-39.9) Anxiety Insomnia Vitamin D deficiency Neuropathy Asthma Impaired fasting glucose Pure hypercholesterolemia Lumbar degenerative disc disease Surgical History History of lumbar surgery H/O total hysterectomy Family History Father CVD (cardiovascular disease) Mother Cancer Social History Housing: Apartment Alcohol intake: never Patient Tobacco Use Status: Former Tobacco user e-Cigarette/Vaping Use: Never Used Second Hand Smoke Exposure: Yes service: No Current occupational status: disabled Cognitive needs: No Hearing needs: No Vision needs: No Questionnaire PHQ-9 Over the last 2 weeks, how often have you been bothered by any of the following problems? 1. Little interest or pleasure in doing things: not at all 2. Feeling down, depressed, or hopeless: not at all 3. Trouble falling or staying asleep, or sleeping too much: not at all 4. Feeling tired or having little energy: not at all 5. Poor appetite or overeating: not at all 6. Feeling bad about yourself - or that you are a failure or have let yourself or your family down: not at all 7. Trouble concentrating on things, such as reading the newspaper or watching television: not at all 8. Moving or speaking so slowly that other people could have noticed. Or the opposite - being so fidgety or restless that you have been moving around a lot more than usual: not at all 9. Thoughts that you would be better off or of hurting yourself in some way: not at all Total score: 0 Depression Screening Interpretation: Negative Depression Screening Done: Yes 18299 - PHQ-9 Billing: Yes Source: Developed by Drs. Juan Larson, Maile Arzate, Trung Durbin and colleagues, with an educational chioma from [employer]. Thrive Questionnaire Date Thrive assessed: 10/03/23 I am a: Patient What is your living situation today?: I have a steady place to live Within the past 12 months, did the food you bought not last and you didn't have the money to get more?: Never true Within the past 12 months, did you worry whether your food would run out before you got money to buy more?: Never true Do you have trouble paying for medicines?: No Do you have trouble getting transportation to medical appointments?: No Do you have trouble paying your heating and electricity bill?: No Do you have trouble taking care of your child, family member or friend?: No Do you have trouble with day-to-day activities such as bathing, preparing meals, shopping, managing finances, etc.?: No Are you currently unemployed and looking for a job?: No Are you interested in more education?: No Please select the resources that you would like help with: None Currently or been in a relationship where the following occur: no concerns reported AUDIT C Alcohol Use Questionnaire (AUDIT-C) 1. How often do you have a drink containing alcohol?: Never 3. How often do you have six or more drinks on one occasion?: Never Total Score: 0 Score Reviewed/Action Taken: Yes HAILY-7 AMB Questionnaire HAILY-7 Date HAILY - 7 assessed: 10/03/23 Feeling nervous, anxious, or on edge: 0 = Not at all Not being able to stop or control worryin = Not at all Worrying too much about different things: 0 = Not at all Trouble relaxin = Not at all Being so restless that it is hard to sit still: 0 = Not at all Becoming easily annoyed or irritable: 0 = Not at all Feeling afraid as if something awful might happen: 0 = Not at all Total HAILY-7 score (0-4 normal; 5-9 mild; 10-14 moderate; 15-21 severe): 0 Source: Developed by Drs. Juan Larson, Maile Arzate, Trung Durbin and colleagues, with an educational chioma from [employer]. HIALY-7 Assessment Billing HAILY-7 Assessment Tool: HAILY-7 Assessment 72322 Review of Systems Const Denies chills, Reports difficulty sleeping, Reports fatigue, Denies fever(s) and Denies headache(s) ENT Denies dysphagia, Denies dizziness, Denies otalgia, Denies headache(s), Reports nasal congestion, Denies neck pain, Denies odynophagia and Reports sore throat (mild) Card Denies chest pain, Denies palpitations and Denies dyspnea Resp Reports chest congestion (mild), Reports cough (on and off, coughs up clear to whitish phlegm at times), Denies pain with cough, Denies dyspnea and Denies wheezing GI Denies abdominal pain, Denies constipation, Denies dysphagia, Denies heartburn, Denies diarrhea, Denies nausea, Denies odynophagia and Denies vomiting Denies difficulty voiding, Denies nocturia and Denies dysuria Musc Denies abnormal gait, Reports back pain (over the lower back - chronic), Denies muscle weakness, Denies neck pain and Reports stiffness (over the lower back) Skin/Breast Denies rash Neuro Denies abnormal gait, Denies dizziness, Denies headache(s) and Reports radicular pain (into both lower extremities) Psych Reports anxiety Endo Reports fatigue and Denies palpitations Aller/Immun Denies wheezing Physical exam (Primary Care) Vital Signs: Last Vital Signs Pulse 96 10/03/23 10:41 BP 160/92 H 10/03/23 10:41 Pulse Ox 94 10/03/23 10:41 Oxygen Delivery Method Room Air 10/03/23 10:41 BMI result Body Mass Index 36.7 Tobacco/Smoking Status: Tobacco use Status Tobacco use date assessed 10/03/23 10/03/23 10:42 Patient Tobacco Use Status Former Tobacco user 10/03/23 10:42 e-Cigarette/Vaping Use Never Used 10/03/23 10:42 PHQ-9: PHQ-9 Score PHQ-9: Total score 0 10/03/23 11:21 Depression Screening Interpretation: Negative Thrive Assessment: Date of Thrive Assessment Date Thrive assessed 10/03/23 10/03/23 10:42 Currently or been in a relationship where the following occur: no concerns reported Const General: no acute distress and alert HENMT Ears: TM's normal bilaterally and EAC's normal Throat: Yes posterior oropharynx normal and Yes tonsils normal (no TP congestion) Neck Neck: Yes no lymphadenopathy and Yes supple Resp Auscultation: no rales, rhonchi (scattered) throughout, no wheezes and bronchial breath sounds Cardio Rate: regular rate Rhythm: regular rhythm Heart sounds: no murmurs GI Palpation (GI): Soft to palpation and nontender Auscultation: normal bowel sounds Back/Spine/Pelvis Thoracic/Lumbar Spine: lumbar spinal tenderness Skin Rashes: no rashes Extrem General: Yes no clubbing, cyanosis or edema Office Procedures Flu Questionnaire Does the patient have a severe egg allergy?: No Does the patient have severe life threatening allergies?: No Does the patient have a fever or illness today?: No Has the patient ever had Guillain-Dale Syndrome?: No Has the patient ever had any past reaction to a flu shot?: No Immunizations flu vacc [id number] 6mos up(PF) 60 mcg(15 mcgx4)/0.5 mL IM syringe Performing Provider: Nahid Tilley MD Performing Location: [facility] Administered by: Esvin Guardado on 10/03/23 11:30 Dose Route Admin Location Dispensed Lot Number Expiration Date [facility] [employer] 0.5 mL IM Left Deltoid 0.5 mL [id number] 04/22/24 83601-081-41 [employer] VIS Given Date VIS Provided VIS Publication Date 10/03/23 Single Vaccine 21 Eligibility Eligibility Date Funding Source Not [facility] Eligible 10/03/23 Private Assessment and Plan Assessment & Plan (1) Subarachnoid hemorrhage: Code(s): I60.9 - Nontraumatic subarachnoid hemorrhage, unspecified Plan: Patient has NO apparent residual neurologic symptoms from her CVA Initial head CT in August 2021 revealed (+) acute 1.5 cm right frontal intraparenchymal hematoma with mild surrounding edema; acute subarachnoid hemorrhage in the cortical sulci along the posterior left vertex and upper left cerebral convexity. 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 Vasculitis work ups were all unremarkable Continue Keppra 500 mg BID; is advised to continue monitoring her BP regularly Was previously referred to neurology for further evaluation and management but it appears that patient never went for her appt As she has not had any problems since, patient requested to hold off on neurology referral at this time (2) Benign essential hypertension: Code(s): I10 - Essential (primary) hypertension Plan: Reinforced low sodium diet - goal is systolic BP of 140 mm or less Was on Verapamil 40 mg TID in the past and at some point, she was also started on Amlodipine 10 mg QD but she is currently only on Amlodipine Based on her BP log/BP readings on her monitor, it appears that her elevated BP readings coincide with when she is experiencing increased pain over her lower back although these do go up significantly, with systolic BP going as high as 170 mm Will go ahead and start her additionally on Losartan 50 mg QD (in addition to her Amlodipine 10 mg QD) She is advised to continue monitoring her blood pressure regularly (3) Pure hypercholesterolemia: Code(s): E78.00 - Pure hypercholesterolemia, unspecified Plan: She was not able to get her follow up labs done yet and will go to the lab to get them done right after her visit today Reinforced low cholesterol diet Continue Atorvastatin 20 mg QD Will have patient recheck her labs and fasting lipids again in 3 months for follow up (4) Impaired fasting glucose: Code(s): R73.01 - Impaired fasting glucose Plan: HgbA1c was normal at 5.3% when checked a few times previously Reinforced low calorie diet/exercise as tolerated (5) Asthma: Code(s): J45.909 - Unspecified asthma, uncomplicated Qualifiers: Asthma severity: mild Asthma persistence: intermittent Asthma complication type: uncomplicated Qualified Code(s): J45.20 - Mild intermittent asthma, uncomplicated Plan: Stable - continue Albuterol HFA 2 puffs 4 times a day as needed (6) Bronchitis: Code(s): J40 - Bronchitis, not specified as acute or chronic Plan: Will go ahead and start patient empirically on Azithromycin QD x 5 days so as not to risk her symptoms getting any worse and triggering another bout of asthma exacerbation (7) Lumbar degenerative disc disease: Code(s): M51.36 - Other intervertebral disc degeneration, lumbar region Plan: Reinforced activity and weight lifting restrictions to avoid aggravating her back pain - she admitted to doing a lot more cooking and preparation than usual during the recent and was in a lot of pain for a while Continue Lyrica 150 mg 3 times a day, Ibuprofen 800 mg 3 times a day with food as needed, Methocarbamol 500 mg every 8 hours as needed, Oxycodone-Acetaminophen 10-325 mg twice a day as needed for pain, 28 days, #56 tablets, Refills 0,? and Morphine ER 60 mg 2 tablets twice a day, 28 days, #112 tablets, Refills 0 (8) Neuropathy: Code(s): G62.9 - Polyneuropathy, unspecified Plan: States that Lyrica is helping with her symptoms of neuropathy (9) Vitamin D deficiency: Code(s): E55.9 - Vitamin D deficiency, unspecified Plan: Continue Vitamin D3 2000 units QD (10) Insomnia: Code(s): G47.00 - Insomnia, unspecified Qualifiers: Insomnia type: primary Qualified Code(s): F51.01 - Primary insomnia Plan: Sleep hygiene reinforced Zolpidem was discontinued previously due to her encephalopathy Continue Trazodone 150 mg Q HS PRN (11) Anxiety: Code(s): F41.9 - Anxiety disorder, unspecified Plan: Continue Lorazepam 1 mg twice a day as needed (12) Obesity (BMI 30-39.9): Code(s): E66.9 - Obesity, unspecified Plan: Reinforced diet and lose weight; exercise is unrealistic given patient's physical incapacities and her recent CVA Plan Flu vaccine given today Follow up in 3 months Orders: Orders TSH reflex Free T4 3 Months E78.00 - Pure hypercholesterolemia, unspecified Vitamin B12 and Folate 3 Months E53.8 - Deficiency of other specified B group vitamins Hemoglobin A1c 3 Months R73.01 - Impaired fasting glucose Complete Blood Count Auto Diff 3 Months I10 - Essential (primary) hypertension Lipid Panel 3 Months E78.00 - Pure hypercholesterolemia, unspecified Comprehensive [place]. Panel Fast 3 Months E78.00 - Pure hypercholesterolemia, unspecified Influenza [id number] Immunization Today Z23 - Encounter for immunization UA CC w/rflx Micro + Cult 3 Months R30.0 - Dysuria Vitamin D 25-OH Total 3 Months E55.9 - Vitamin D deficiency, unspecified Medications: New losartan 50 mg PO DAILY 90 tabs 1RF 90 days azithromycin take 500 mg today (day 1), then 250 mg for 4 days (days 2-5) PO 6 tabs 0RF Coding Level of Care Code Est Pt Level 4 (49018) Diagnoses Subarachnoid hemorrhage I60.9 Benign essential hypertension I10 Pure hypercholesterolemia E78.00 Impaired fasting glucose R73.01 Mild intermittent asthma without complication J45.20 Asthma severity: mild Asthma persistence: intermittent Asthma complication type: uncomplicated Bronchitis J40 Lumbar degenerative disc disease M51.36 Neuropathy G62.9 Vitamin D deficiency E55.9 Primary insomnia F51.01 Insomnia type: primary Anxiety F41.9 Obesity (BMI 30-39.9) E66.9 Additional Codes HAILY-7 Assessment Billing - HAILY-7 Assessment Tool: HAILY-7 Assessment [id number] ([id number])
== END 2023-10-03 11:40 | disposition home or self-care (01) ==
PROVIDERS: PCP Internal Medicine; Visit Provider Internal Medicine
DX: Z23 Encounter for immunization (principal)
CPT/HCPCS: 90471; 90686; 99214

== ENCOUNTER 2023-10-03 11:59 | Outpatient (REF) | payer OTHER, SELFPAY ==
[2023-10-03 13:12] LABS: MANUAL DIFF FLAG NO
[2023-10-03 13:24] LABS: Appearance Urine Clear; Color Urine Yellow; Glucose Urine UA Negative (Negative); Leukocyte Esterase Urine Trace (Negative); Nitrite Urine Negative (Negative); PH 5.5 (5.0-9.0); Specific Gravity - Urine 1.015 (1.005-1.025); UMIC TRIGGER UACC YES; Urine Blood Negative (Negative); Urine Ketones Negative (Negative); Urine Protein Negative (Neg-Trace)
[2023-10-03 13:48] LABS: Basophils Absolute Auto 0.1 X10*3/uL (0.0-0.2); Basophils Percent Auto 0.7 % (0-2); Eosinophils Absolute Auto 0.2 X10*3/uL (0.0-0.4); Hematocrit 37.7 % (37.0-47.0); Hemoglobin 12.2 g/dl (12.0-16.0); Imm Gran Abs Auto 0.02 X10*3/uL (0.00-0.03); Imm Gran Pct Auto 0.2 % (0.0-0.4); Lymphocytes Absolute Auto 1.8 X10*3/uL (1.2-4.9); Lymphocytes Percent Auto 21.7 % (20-40); Mean Corpuscular HGB Conc 32.4 g/dl (31.0-35.0); Mean Corpuscular Hemoglobin 27.7 pg (27.0-33.0); Mean Corpuscular Volume 85.5 fL (80.0-98.0); Mean Platelet Volume 9.8 fL (9.4-12.3); Monocytes Absolute Auto 0.6 X10*3/uL (0.1-1.2); Neutrophils Absolute Auto 5.7 x10*3/uL (2.0-8.3); Neutrophils Percent Auto 68.4 % (45-73); Platelet Count 201 X10*3/uL (160-400); Red Blood Count 4.41 X10*6/uL (4.20-5.50); Red Cell Distribution Width 13.2 % (11.0-16.0); White Blood Count 8.3 X10*3/uL (4.8-10.8)
[2023-10-03 14:00] LABS: Bacteria Urine None Seen (None Seen); Hyaline Casts Urine 0-2 /LPF (0-2); Other Crystals Urine Present; RBC Urine 0-2 /HPF (0-2); Squamous Epithelial Cell Urine 0-2 /HPF (0-2); WBC Urine 0-5 /HPF (0-5)
[2023-10-03 14:21] LABS: Alanine Aminotransferase 46 U/L (0-31); Alkaline Phosphatase 88 U/L (39-117); Anion Gap 13 (12-20); Aspartate Amino Transferase 42 U/L (5-31); Bilirubin Total 0.3 mg/dL (0.0-1.0); Blood Urea Nitrogen 15 mg/dL (9-16); Calcium 9.2 mg/dL (8.4-10.2); Carbon Dioxide 28 mmol/L (22-29); Chloride 107 mmol/L (96-108); Cholesterol 134 mg/dL (<200); Estimated Glomerular Filt Rate > 60; Glucose Fasting 93 mg/dL (60-99); HDL Cholesterol 37 mg/dL (>40); LDL Cholesterol Calculated 84 mg/dL (<100); Potassium 4.2 mmol/L (3.3-5.1); Sodium 144 mmol/L (135-145); Total Protein 6.5 g/dL (6.5-8.0); Triglycerides 67 mg/dL (<150)
[2023-10-03 14:31] LABS: TSH reflex Free T4 0.81 uIU/mL (0.32-4.0); Vitamin D 25-OH Total 26.2 ng/mL (>30)
[2023-10-06 01:34] LABS: Levetiracetam Keppra <2.0 mcg/mL (6.0-46.0)
== END 2023-10-03 12:00 | disposition home or self-care (01) ==
LOC: HO.HMGCLDS 11:59
PROVIDERS: Nurse Practitioner Family; PCP Internal Medicine; Visit Provider Internal Medicine
DX: E55.9 Vitamin D deficiency, unspecified (principal); I10 Essential (primary) hypertension; E78.00 Pure hypercholesterolemia, unspecified; G40.909 Epilepsy, unspecified, not intractable, without status epilepticus; R30.0 Dysuria
CPT/HCPCS: 36415; 80053; 80061; 80177; 81001; 82306; 84443; 85025

== ENCOUNTER 2024-01-04 12:46 | Outpatient (AMB) | payer OTHER, SELFPAY ==
--- NOTE | 2024-01-04 12:46 | A.OFFPC_ITS ---
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 Accompanied by: Self / Same As Patient Allergies No Known Allergies Allergy (Verified 01/04/24 12:58) Medication List - Last Reconciled 01/04/24 by Nahid Tilley MD albuterol sulfate 90 mcg/actuation 2 puffs PO QID PRN amlodipine 10 mg PO DAILY atorvastatin 20 mg PO DAILY azithromycin take 500 mg today (day 1), then 250 mg for 4 days (days 2-5) PO blood pressure monitor As directed cholecalciferol (vitamin D3) 25 mcg PO DAILY compr.stocking,knee,long,large As directed ibuprofen 800 mg PO TID PRN levetiracetam 500 mg PO BID lorazepam 1 mg PO BID PRN 30 days losartan 50 mg PO DAILY 90 days methocarbamol 500 mg PO Q8H PRN morphine ER 120 mg (2 x 60 mg) PO BID 28 days oxycodone-acetaminophen 10-325 mg 1 tab PO BID PRN 28 days pregabalin 150 mg PO TID 30 days [SHOWER CHAIR SHOWER CHAIR - Use as directed] trazodone 150 mg PO BEDTIME PRN 30 days Tobacco use date assessed: 01/04/24 Fall risk assessment: No Falls in past year Last assessed Fall Risk: 01/04/24 Dental Screening Dental Screen Date: 01/04/24 Did you have a dental visit in the last 12 months?: No Did you have a dental problem in the last 6 months where you did not have access to dental care?: No Was dental information given to patient?: Patient declined HPI hyperlipidemia, HTN, chronic low back pain HPI Details Patient's follow-up visit / consultation today is done over the phone - this is a Telehealth visit Patient's current medications have been reviewed and verified with patient and / or caregiver / proxy and have been updated accordingly in the medication list Patient states that she feels okay She denies any headaches or dizziness Denies any chest pains, no SOB No nausea/vomiting, no abdominal pain No change in bowel habits noted Had her follow up labs done a few months ago and would like to know how she did on her labs back then [facility] Medical History Benign essential hypertension Obesity (BMI 30-39.9) Anxiety Insomnia Vitamin D deficiency Neuropathy Asthma Impaired fasting glucose Pure hypercholesterolemia Lumbar degenerative disc disease Surgical History History of lumbar surgery H/O total hysterectomy Family History Father CVD (cardiovascular disease) Mother Cancer Social History Housing: Apartment Alcohol intake: never Patient Tobacco Use Status: Former Tobacco user e-Cigarette/Vaping Use: Never Used Second Hand Smoke Exposure: Yes service: No Current occupational status: disabled Cognitive needs: No Hearing needs: No Vision needs: No Questionnaire PHQ-9 Over the last 2 weeks, how often have you been bothered by any of the following problems? 1. Little interest or pleasure in doing things: not at all 2. Feeling down, depressed, or hopeless: not at all 3. Trouble falling or staying asleep, or sleeping too much: not at all 4. Feeling tired or having little energy: not at all 5. Poor appetite or overeating: not at all 6. Feeling bad about yourself - or that you are a failure or have let yourself or your family down: not at all 7. Trouble concentrating on things, such as reading the newspaper or watching television: not at all 8. Moving or speaking so slowly that other people could have noticed. Or the opposite - being so fidgety or restless that you have been moving around a lot more than usual: not at all 9. Thoughts that you would be better off or of hurting yourself in some way: not at all Total score: 0 Depression Screening Interpretation: Negative Depression Screening Done: Yes 67412 - PHQ-9 Billing: Yes Source: Developed by Drs. Juan Larson, Maile Arzate, Trung Durbin and colleagues, with an educational chioma from [employer]. Thrive Questionnaire Date Thrive assessed: 01/04/24 I am a: Patient What is your living situation today?: I have a steady place to live Within the past 12 months, did the food you bought not last and you didn't have the money to get more?: Never true Within the past 12 months, did you worry whether your food would run out before you got money to buy more?: Never true Do you have trouble paying for medicines?: No Do you have trouble getting transportation to medical appointments?: No Do you have trouble paying your heating and electricity bill?: No Do you have trouble taking care of your child, family member or friend?: No Do you have trouble with day-to-day activities such as bathing, preparing meals, shopping, managing finances, etc.?: No Are you currently unemployed and looking for a job?: No Are you interested in more education?: No Please select the resources that you would like help with: None Currently or been in a relationship where the following occur: no concerns reported THRIVE Score: 0 AUDIT C Alcohol Use Questionnaire (AUDIT-C) 1. How often do you have a drink containing alcohol?: Never 3. How often do you have six or more drinks on one occasion?: Never Total Score: 0 Score Reviewed/Action Taken: Yes HAILY-7 AMB Questionnaire HAILY-7 Date HAILY - 7 assessed: 01/04/24 Feeling nervous, anxious, or on edge: 0 = Not at all Not being able to stop or control worryin = Not at all Worrying too much about different things: 0 = Not at all Trouble relaxin = Not at all Being so restless that it is hard to sit still: 0 = Not at all Becoming easily annoyed or irritable: 0 = Not at all Feeling afraid as if something awful might happen: 0 = Not at all Total HAILY-7 score (0-4 normal; 5-9 mild; 10-14 moderate; 15-21 severe): 0 Source: Developed by Drs. Juan Larson, Maile Arzate, Trung Durbin and colleagues, with an educational chioma from [employer]. HAILY-7 Assessment Billing HAILY-7 Assessment Tool: HAILY-7 Assessment 05410 Review of Systems Const Denies chills, Reports difficulty sleeping, Denies fatigue, Denies fever(s) and Denies headache(s) ENT Denies dysphagia, Denies dizziness, Denies otalgia, Denies headache(s), Denies neck pain, Denies odynophagia and Denies sore throat Card Denies chest pain, Denies palpitations and Denies dyspnea Resp Denies chest congestion, Denies cough, Denies dyspnea and Denies wheezing GI Denies abdominal pain, Denies constipation, Denies dysphagia, Denies heartburn, Denies diarrhea, Denies nausea, Denies odynophagia and Denies vomiting Denies difficulty voiding, Denies nocturia, Denies dysuria and Denies urinary urgency Musc Denies abnormal gait, Reports back pain (over the lower back - chronic), Denies muscle weakness, Denies neck pain and Reports stiffness (over the lower back) Skin/Breast Denies rash Neuro Denies abnormal gait, Denies dizziness, Denies headache(s) and Reports radicular pain (into both lower extremities) Psych Reports anxiety Endo Denies fatigue and Denies palpitations Aller/Immun Denies wheezing Physical exam (Primary Care) Vital Signs: Physical examination is not performed as visit / consultation today is done over the phone - Telehealth visit All physical findings indicated here, if present, are as per patient's and / or caregivers / proxy's report Tobacco/Smoking Status: Tobacco use Status Tobacco use date assessed 01/04/24 01/04/24 12:48 Patient Tobacco Use Status Former Tobacco user 01/04/24 12:48 e-Cigarette/Vaping Use Never Used 01/04/24 12:48 PHQ-9: PHQ-9 Score PHQ-9: Total score 0 01/04/24 12:48 Depression Screening Interpretation: Negative Thrive Assessment: Date of Thrive Assessment Date Thrive assessed 01/04/24 01/04/24 12:48 Currently or been in a relationship where the following occur: no concerns reported Telehealth Telehealth Location of provider rendering services: practice address Location of patient: address on file Patient Identification confirmed using: Name, : Yes Telehealth method: voice only Patient verbally consented to treatment: Yes Patient verbally consented to billing insurance company: Yes Patient informed of any privacy concerns related to visit: Yes Minutes spent on Phone/Video with Pt.: 22 Results Reviewed Results Reviewed: Laboratory Tests 10/03/23 12:05 WBC 8.3 Hgb 12.2 Hct 37.7 Plt Count 201 Sodium 144 Potassium 4.2 Creatinine 0.76 Estimated GFR > 60 Fasting Glucose 93 Calcium 9.2 AST 42 H ALT 46 H Triglycerides 67 Cholesterol 134 LDL Cholesterol, Calc 84 HDL Cholesterol 37 L TSH 0.81 Ur Specific [place] 1.015 Urine Protein Negative Urine Glucose (UA) Negative Urine Blood Negative Urine Nitrite Negative Ur Leukocyte Esterase Trace H Assessment and Plan Assessment & Plan (1) Subarachnoid hemorrhage: Code(s): I60.9 - Nontraumatic subarachnoid hemorrhage, unspecified Plan: Patient has NO apparent residual neurologic symptoms from her CVA in [address] in August 2021 revealed (+) acute 1.5 cm right frontal intraparenchymal hematoma with mild surrounding edema; acute subarachnoid hemorrhage in the cortical sulci along the posterior left vertex and upper left cerebral convexity. 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 Vasculitis work ups back then were all unremarkable Continue Keppra 500 mg BID Was previously referred to neurology for further evaluation and management but it appears that patient never went for her appt As she has not had any problems since, patient requested to hold off on neurology referral for now (2) Benign essential hypertension: Code(s): I10 - Essential (primary) hypertension Plan: Reinforced low sodium diet - goal is systolic BP of 140 mm or less Was on Verapamil 40 mg TID in the past and at some point, she was also started on Amlodipine 10 mg QD Based on her BP log/BP readings on her monitor, it appears that her elevated BP readings coincide with when she is experiencing increased pain over her lower back although these do go up significantly, with systolic BP going as high as 170 mm Continue Losartan 50 mg QD and Amlodipine 10 mg QD She is reminded to continue monitoring her blood pressure regularly (3) Pure hypercholesterolemia: Code(s): E78.00 - Pure hypercholesterolemia, unspecified Plan: Results of her labs done a few months ago reviewed and discussed with patient - advised that her cholesterol levels have improved from previous Reinforced low cholesterol diet Continue Atorvastatin 20 mg QD Will have patient recheck her labs and fasting lipids in 3 months for follow up (4) Impaired fasting glucose: Code(s): R73.01 - Impaired fasting glucose Plan: HgbA1c was normal at 5.3% when checked a few times previously; FBS was normal at 92 mg/dl when checked 3 months ago Reinforced low calorie diet/exercise as tolerated (5) Asthma: Code(s): J45.909 - Unspecified asthma, uncomplicated Qualifiers: Asthma severity: mild Asthma persistence: intermittent Asthma complication type: uncomplicated Qualified Code(s): J45.20 - Mild intermittent asthma, uncomplicated Plan: Stable - continue Albuterol HFA 2 puffs 4 times a day as needed (6) Lumbar degenerative disc disease: Code(s): M51.36 - Other intervertebral disc degeneration, lumbar region Plan: Reinforced activity and weight lifting restrictions to avoid aggravating her back pain Continue Lyrica 150 mg 3 times a day, Ibuprofen 800 mg 3 times a day with food as needed, Methocarbamol 500 mg every 8 hours as needed, Oxycodone-Acetaminophen 10-325 mg twice a day as needed for pain, 28 days, #56 tablets, Refills 0,? and Morphine ER 60 mg 2 tablets twice a day, 28 days, #112 tablets, Refills 0 (7) Neuropathy: Code(s): G62.9 - Polyneuropathy, unspecified Plan: States that Lyrica is helping with her symptoms of neuropathy (8) Vitamin D deficiency: Code(s): E55.9 - Vitamin D deficiency, unspecified Plan: Continue Vitamin D3 2000 units QD (9) Insomnia: Code(s): G47.00 - Insomnia, unspecified Qualifiers: Insomnia type: primary Qualified Code(s): F51.01 - Primary insomnia Plan: Sleep hygiene reinforced Zolpidem was discontinued previously due to her encephalopathy Continue Trazodone 150 mg Q HS PRN (10) Anxiety: Code(s): F41.9 - Anxiety disorder, unspecified Plan: Continue Lorazepam 1 mg twice a day as needed (11) Obesity (BMI 30-39.9): Code(s): E66.9 - Obesity, unspecified Plan: Reinforced diet and lose weight; exercise is unrealistic given patient's physical incapacities and her recent CVA Plan Follow up in 3 months Orders: Orders Complete Blood Count Auto Diff 3 Months D64.9 - Anemia, unspecified Comprehensive Crane. Panel Fast 3 Months E78.00 - Pure hypercholesterolemia, unspecified Lipid Panel 3 Months E78.00 - Pure hypercholesterolemia, unspecified TSH reflex Free T4 3 Months E78.00 - Pure hypercholesterolemia, unspecified UA CC w/rflx Micro + Cult 3 Months R30.0 - Dysuria Vitamin D 25-OH Total 3 Months E55.9 - Vitamin D deficiency, unspecified Hemoglobin A1c 3 Months R73.01 - Impaired fasting glucose Vitamin B12 and Folate 3 Months E53.8 - Deficiency of other specified B group vitamins Coding Level of Care Code Tele Est Pt Level 4 (85327) Diagnoses Subarachnoid hemorrhage I60.9 Benign essential hypertension I10 Pure hypercholesterolemia E78.00 Impaired fasting glucose R73.01 Mild intermittent asthma without complication J45.20 Asthma severity: mild Asthma persistence: intermittent Asthma complication type: uncomplicated Lumbar degenerative disc disease M51.36 Neuropathy G62.9 Vitamin D deficiency E55.9 Primary insomnia F51.01 Insomnia type: primary Anxiety F41.9 Obesity (BMI 30-39.9) E66.9 Additional Codes HAILY-7 Assessment Billing - HAILY-7 Assessment Tool: HAILY-7 Assessment 87545 ([id number])
[2024-01-04 13:02] VITALS: BP 128/77
== END 2024-01-04 13:50 | disposition home or self-care (01) ==
LOC: HO.HMGH 12:46
PROVIDERS: PCP Internal Medicine; Visit Provider Internal Medicine
DX: I10 Essential (primary) hypertension (principal); E78.00 Pure hypercholesterolemia, unspecified; R73.01 Impaired fasting glucose; J45.20 Mild intermittent asthma, uncomplicated; M51.36 Other intervertebral disc degeneration, lumbar region; G62.9 Polyneuropathy, unspecified; E55.9 Vitamin D deficiency, unspecified; F51.01 Primary insomnia; F41.9 Anxiety disorder, unspecified; E66.9 Obesity, unspecified
CPT/HCPCS: 99443

== ENCOUNTER 2024-01-09 12:32 | Outpatient (REF) | payer OTHER, SELFPAY ==
[2024-01-09 16:05] LABS: MANUAL DIFF FLAG NO
[2024-01-09 16:13] LABS: Basophils Absolute Auto 0.1 X10*3/uL (0.0-0.2); Basophils Percent Auto 0.9 % (0-2); Eosinophils Absolute Auto 0.2 X10*3/uL (0.0-0.4); Hematocrit 36.8 % (37.0-47.0); Hemoglobin 12.2 g/dl (12.0-16.0); Imm Gran Abs Auto 0.04 X10*3/uL (0.00-0.03); Imm Gran Pct Auto 0.5 % (0.0-0.4); Lymphocytes Percent Auto 25.6 % (20-40); Mean Corpuscular HGB Conc 33.2 g/dl (31.0-35.0); Mean Corpuscular Hemoglobin 28.6 pg (27.0-33.0); Mean Corpuscular Volume 86.2 fL (80.0-98.0); Mean Platelet Volume 9.8 fL (9.4-12.3); Monocytes Absolute Auto 0.7 X10*3/uL (0.1-1.2); Monocytes Percent Auto 8.8 % (2-11); Neutrophils Absolute Auto 4.9 x10*3/uL (2.0-8.3); Neutrophils Percent Auto 62.2 % (45-73); Platelet Count 241 X10*3/uL (160-400); Red Blood Count 4.27 X10*6/uL (4.20-5.50); Red Cell Distribution Width 13.6 % (11.0-16.0); White Blood Count 7.8 X10*3/uL (4.8-10.8)
[2024-01-09 16:16] LABS: Appearance Urine Turbid; Color Urine Yellow; Glucose Urine UA Negative (Negative); Leukocyte Esterase Urine Small (1+) (Negative); Nitrite Urine Negative (Negative); UMIC TRIGGER UACC YES; Urine Blood Negative (Negative); Urine Ketones Negative (Negative); Urine Protein Negative (Neg-Trace)
[2024-01-09 16:23] LABS: Estimated Average Glucose 105 mg/dL; Hemoglobin A1c % 5.3 % (<6.0)
[2024-01-09 16:40] LABS: Bacteria Urine None Seen (None Seen); Hyaline Casts Urine 0-2 /LPF (0-2); RBC Urine 0-2 /HPF (0-2); UACC Culture Trigger YES
[2024-01-09 16:41] LABS: Alanine Aminotransferase 14 U/L (0-31); Albumin Level 4.2 g/dL (3.5-5.0); Alkaline Phosphatase 86 U/L (39-117); Anion Gap 13 (12-20); Aspartate Amino Transferase 14 U/L (5-31); Bilirubin Total 0.6 mg/dL (0.0-1.0); Blood Urea Nitrogen 25 mg/dL (9-16); Calcium 9.1 mg/dL (8.4-10.2); Carbon Dioxide 27 mmol/L (22-29); Chloride 102 mmol/L (96-108); Cholesterol 137 mg/dL (<200); Estimated Glomerular Filt Rate > 60; Glucose Fasting 83 mg/dL (60-99); HDL Cholesterol 36 mg/dL (>40); LDL Cholesterol Calculated 84 mg/dL (<100); Potassium 4.3 mmol/L (3.3-5.1); Sodium 138 mmol/L (135-145); Total Protein 6.9 g/dL (6.5-8.0); Triglycerides 86 mg/dL (<150)
[2024-01-09 16:56] LABS: TSH reflex Free T4 1.68 uIU/mL (0.32-4.0); Vitamin D 25-OH Total 36.8 ng/mL (>30)
[2024-01-09 17:12] LABS: Folate 5.8 ng/mL (> or = 4.0); Vitamin B12 363 pg/mL (200-900)
== END 2024-01-09 12:33 | disposition home or self-care (01) ==
LOC: HO.HMGCLDS 12:32
PROVIDERS: PCP Internal Medicine; Visit Provider Internal Medicine
DX: I10 Essential (primary) hypertension (principal); E78.00 Pure hypercholesterolemia, unspecified; R73.01 Impaired fasting glucose; E53.8 Deficiency of other specified B group vitamins; E55.9 Vitamin D deficiency, unspecified
CPT/HCPCS: 36415; 80053; 80061; 81001; 81003; 82306; 82607; 82746; 83036; 84443; 85025; 87086

== ENCOUNTER 2024-04-20 11:28 | Outpatient (REF) | payer OTHER, SELFPAY ==
[2024-04-20 13:08] LABS: Appearance Urine Clear; Color Urine Yellow; Glucose Urine UA Negative (Negative); Leukocyte Esterase Urine Trace (Negative); Nitrite Urine Negative (Negative); Specific Gravity - Urine 1.015 (1.005-1.025); UMIC TRIGGER UACC YES; Urine Blood Negative (Negative); Urine Ketones Negative (Negative); Urine Protein Negative (Neg-Trace)
[2024-04-20 13:12] LABS: MANUAL DIFF FLAG NO
[2024-04-20 13:14] LABS: Bacteria Urine None Seen (None Seen); Hyaline Casts Urine 0-2 /LPF (0-2); RBC Urine 0-2 /HPF (0-2); Squamous Epithelial Cell Urine 0-2 /HPF (0-2); WBC Urine 0-5 /HPF (0-5)
[2024-04-20 13:19] LABS: Basophils Absolute Auto 0.1 X10*3/uL (0.0-0.2); Basophils Percent Auto 0.6 % (0-2); Eosinophils Absolute Auto 0.1 X10*3/uL (0.0-0.4); Eosinophils Percent Auto 1.5 % (0-4); Hematocrit 36.8 % (37.0-47.0); Imm Gran Abs Auto 0.02 X10*3/uL (0.00-0.03); Imm Gran Pct Auto 0.3 % (0.0-0.4); Lymphocytes Absolute Auto 1.4 X10*3/uL (1.2-4.9); Lymphocytes Percent Auto 18.1 % (20-40); Mean Corpuscular HGB Conc 32.6 g/dl (31.0-35.0); Mean Corpuscular Hemoglobin 27.3 pg (27.0-33.0); Mean Corpuscular Volume 83.8 fL (80.0-98.0); Mean Platelet Volume 10.5 fL (9.4-12.3); Monocytes Absolute Auto 0.6 X10*3/uL (0.1-1.2); Monocytes Percent Auto 8.1 % (2-11); Neutrophils Absolute Auto 5.5 x10*3/uL (2.0-8.3); Neutrophils Percent Auto 71.4 % (45-73); Platelet Count 171 X10*3/uL (160-400); Red Blood Count 4.39 X10*6/uL (4.20-5.50); Red Cell Distribution Width 13.2 % (11.0-16.0); White Blood Count 7.8 X10*3/uL (4.8-10.8)
[2024-04-20 13:29] LABS: Estimated Average Glucose 108 mg/dL; Hemoglobin A1c % 5.4 % (<6.0)
[2024-04-20 13:43] LABS: Alanine Aminotransferase 15 U/L (0-31); Albumin Level 4.2 g/dL (3.5-5.0); Alkaline Phosphatase 68 U/L (39-117); Anion Gap 12 (12-20); Aspartate Amino Transferase 19 U/L (5-31); Bilirubin Total 0.6 mg/dL (0.0-1.0); Blood Urea Nitrogen 16 mg/dL (9-16); Calcium 9.6 mg/dL (8.4-10.2); Carbon Dioxide 27 mmol/L (22-29); Chloride 107 mmol/L (96-108); Cholesterol 189 mg/dL (<200); Estimated Glomerular Filt Rate > 60; Glucose Fasting 90 mg/dL (60-99); HDL Cholesterol 32 mg/dL (>40); LDL Cholesterol Calculated 134 mg/dL (<100); Potassium 4.3 mmol/L (3.3-5.1); Sodium 142 mmol/L (135-145); Total Protein 6.9 g/dL (6.5-8.0); Triglycerides 116 mg/dL (<150)
[2024-04-20 14:01] LABS: TSH reflex Free T4 0.84 uIU/mL (0.32-4.0); Vitamin D 25-OH Total 33.7 ng/mL (>30)
[2024-04-20 14:05] LABS: Folate 9.4 ng/mL (> or = 4.0); Vitamin B12 365 pg/mL (200-900)
== END 2024-04-20 11:29 | disposition home or self-care (01) ==
LOC: HO.HMGCLDS 11:28
PROVIDERS: PCP Internal Medicine; Visit Provider Internal Medicine
DX: D64.9 Anemia, unspecified (principal); E78.00 Pure hypercholesterolemia, unspecified; R73.01 Impaired fasting glucose; E55.9 Vitamin D deficiency, unspecified; E53.8 Deficiency of other specified B group vitamins
CPT/HCPCS: 36415; 80053; 80061; 81001; 82306; 82607; 82746; 83036; 84443; 85025

== ENCOUNTER 2024-04-23 14:13 | Outpatient (AMB) | payer OTHER, SELFPAY ==
--- NOTE | 2024-04-23 14:13 | A.OFFPC_ITS ---
Vital Signs 04/23/24 14:14 Height 5 ft 1 in BP 125/77 Comment weight today is per patient Intake Visit Reasons: 3mth f/u/[phone] Intake Note: Patient is here to follow up on HTN, Asthma, Neuropathy. 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: Not Required per policy Accompanied by: Self / Same As Patient Allergies No Known Allergies Allergy (Verified 04/23/24 15:08) Medication List - Last Reconciled 04/23/24 by Nahid Tilley MD albuterol sulfate 90 mcg/actuation 2 puffs PO QID PRN amlodipine 10 mg PO DAILY atorvastatin 20 mg PO DAILY blood pressure monitor As directed cholecalciferol (vitamin D3) 25 mcg PO DAILY compr.stocking,knee,long,large As directed ibuprofen 800 mg PO TID PRN lorazepam 1 mg PO BID PRN 30 days losartan 50 mg PO DAILY 90 days methocarbamol 500 mg PO Q8H PRN morphine ER 120 mg (2 x 60 mg) PO BID 28 days oxycodone-acetaminophen 10-325 mg 1 tab PO BID PRN 28 days pregabalin 150 mg PO TID 30 days [SHOWER CHAIR SHOWER CHAIR - Use as directed] trazodone 150 mg PO BEDTIME PRN 30 days Tobacco use date assessed: 01/04/24 Fall risk assessment: No Falls in past year Last assessed Fall Risk: 04/23/24 Dental Screening Dental Screen Date: 01/04/24 HPI 3mth f/u/[phone] HPI Details Patient's follow-up visit / consultation today is done over the phone - this is a Telehealth visit Patient's current medications have been reviewed and verified with patient and / or caregiver / proxy and have been updated accordingly in the medication list Patient states that she feels okay She denies any headaches or dizziness Denies any chest pains, no SOB No nausea/vomiting, no abdominal pain No change in bowel habits noted States that her chronic low back pain and joint pains remain adequately controlled on her current Rx She had her follow up labs done a few days ago - to discuss her results COUNT INCLUDES THE [facility] Medical History Benign essential hypertension Obesity (BMI 30-39.9) Anxiety Insomnia Vitamin D deficiency Neuropathy Asthma Impaired fasting glucose Pure hypercholesterolemia Lumbar degenerative disc disease Surgical History History of lumbar surgery H/O total hysterectomy Family History Father CVD (cardiovascular disease) Mother Cancer Social History Housing: Apartment Alcohol intake: never Patient Tobacco Use Status: Former Tobacco user e-Cigarette/Vaping Use: Never Used Second Hand Smoke Exposure: Yes service: No Current occupational status: disabled Cognitive needs: No Hearing needs: No Vision needs: No Questionnaire Thrive Questionnaire Date Thrive assessed: 01/04/24 HAILY-7 AMB Questionnaire HAILY-7 Date HAILY - 7 assessed: 01/04/24 Source: Developed by Drs. Juan Larson, Maile Arzate, Trung Durbin and colleagues, with an educational chioma from [employer]. Review of Systems Const Denies chills, Reports difficulty sleeping, Denies fatigue, Denies fever(s) and Denies headache(s) ENT Denies dysphagia, Denies dizziness, Denies otalgia, Denies headache(s), Denies neck pain, Denies odynophagia and Denies sore throat Card Denies chest pain, Denies palpitations and Denies dyspnea Resp Denies chest congestion, Denies cough, Denies dyspnea and Denies wheezing GI Denies abdominal pain, Denies constipation, Denies dysphagia, Denies heartburn, Denies diarrhea, Denies nausea, Denies odynophagia and Denies vomiting Denies difficulty voiding, Denies nocturia, Denies dysuria and Denies urinary urgency Musc Denies abnormal gait, Reports back pain (over the lower back - chronic), Denies muscle weakness, Denies neck pain and Reports stiffness (over the lower back) Skin/Breast Denies rash Neuro Denies abnormal gait, Denies dizziness, Denies headache(s) and Reports radicular pain (into both lower extremities) Psych Reports anxiety Endo Denies fatigue and Denies palpitations Aller/Immun Denies wheezing Physical exam (Primary Care) Vital Signs: Last Vital Signs BP 125/77 04/23/24 14:14 Physical examination is not performed as visit / consultation today is done over the phone - Telehealth visit All physical findings indicated here, if present, are as per patient's and / or caregivers / proxy's report Tobacco/Smoking Status: Tobacco use Status Tobacco use date assessed 01/04/24 04/23/24 14:18 Patient Tobacco Use Status Former Tobacco user 04/23/24 14:18 e-Cigarette/Vaping Use Never Used 04/23/24 14:18 Thrive Assessment: Date of Thrive Assessment Date Thrive assessed 01/04/24 04/23/24 14:18 Telehealth Telehealth Telehealth Platform: Telephone Location of provider rendering services: practice address Location of patient: address on file Patient Identification confirmed using: Name, : Yes Telehealth method: voice only Patient verbally consented to treatment: Yes Patient verbally consented to billing insurance company: Yes Patient informed of any privacy concerns related to visit: Yes Minutes spent on Phone/Video with Pt.: 22 Results Reviewed Results Reviewed: Laboratory Tests 04/20/24 04/20/24 11:32 11:40 WBC 7.8 Hgb 12.0 Hct 36.8 L Plt Count 171 D Sodium 142 Potassium 4.3 Creatinine 0.79 Estimated GFR > 60 Fasting Glucose 90 Hemoglobin A1c % 5.4 Calcium 9.6 AST 19 ALT 15 Triglycerides 116 Cholesterol 189 LDL Cholesterol, Calc 134 H HDL Cholesterol 32 L Vitamin B12 365 25-OH Vitamin D Total 33.7 TSH 0.84 Ur Specific Howe 1.015 Urine Protein Negative Urine Glucose (UA) Negative Urine Blood Negative Urine Nitrite Negative Ur Leukocyte Esterase Trace H Assessment and Plan Assessment & Plan (1) Benign essential hypertension: Code(s): I10 - Essential (primary) hypertension Plan: Reinforced low sodium diet - goal is systolic BP of 140 mm or less She was on Verapamil 40 mg TID in the past and at some point, she was also started on Amlodipine 10 mg QD Based on her BP log/BP readings on her monitor, it appears that her elevated BP readings coincide with when she is experiencing increased pain over her lower back although these do go up significantly, with systolic BP going as high as 170 mm Continue Losartan 50 mg QD and Amlodipine 10 mg QD She is reminded to continue monitoring her blood pressure regularly (2) Pure hypercholesterolemia: Code(s): E78.00 - Pure hypercholesterolemia, unspecified Plan: Results of her labs done a few days ago reviewed and discussed with patient - advised that her cholesterol levels have increased significantly from previous Reinforced low cholesterol diet Patient admits that she sometimes skips/forgets to take her Atorvastatin and will try to do a better job of taking her meds consistently now Continue Atorvastatin 20 mg QD Will have patient recheck her labs and fasting lipids in 3 months for follow up (3) Impaired fasting glucose: Code(s): R73.01 - Impaired fasting glucose Plan: Her HgbA1c remains normal at 5.4% on her recent labs; was at 5.3% when checked a few times previously Her FBS was normal at 90 mg/dl on her recent labs Reinforced low calorie diet/exercise as tolerated (4) Subarachnoid hemorrhage: Code(s): I60.9 - Nontraumatic subarachnoid hemorrhage, unspecified Plan: Patient has NO apparent residual neurologic symptoms from her CVA in [address] in August 2021 revealed (+) acute 1.5 cm right frontal intraparenchymal hematoma with mild surrounding edema; acute subarachnoid hemorrhage in the cortical sulci along the posterior left vertex and upper left cerebral convexity. 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 Vasculitis work ups back then were all unremarkable She was previously referred to neurology for further evaluation and management but it appears that patient never went for her appt As she has not had any problems since, patient requested to hold off on neurology referral for now Continue Keppra 500 mg BID (5) Asthma: Code(s): J45.909 - Unspecified asthma, uncomplicated Qualifiers: Asthma severity: mild Asthma persistence: intermittent Asthma complication type: uncomplicated Qualified Code(s): J45.20 - Mild intermittent asthma, uncomplicated Plan: Stable - continue Albuterol HFA 2 puffs 4 times a day as needed (6) Lumbar degenerative disc disease: Code(s): M51.36 - Other intervertebral disc degeneration, lumbar region Plan: Reinforced activity and weight lifting restrictions to avoid aggravating her back pain Continue Lyrica 150 mg 3 times a day, Ibuprofen 800 mg 3 times a day with food as needed, Methocarbamol 500 mg every 8 hours as needed, Oxycodone-Acetaminophen 10-325 mg twice a day as needed for pain, 28 days, #56 tablets, Refills 0,? and Morphine ER 60 mg 2 tablets twice a day, 28 days, #112 tablets, Refills 0 (7) Neuropathy: Code(s): G62.9 - Polyneuropathy, unspecified Plan: States that Lasha is helping with her symptoms of neuropathy (8) Vitamin D deficiency: Code(s): E55.9 - Vitamin D deficiency, unspecified Plan: Continue Vitamin D3 2000 units QD (9) Insomnia: Code(s): G47.00 - Insomnia, unspecified Qualifiers: Insomnia type: primary Qualified Code(s): F51.01 - Primary insomnia Plan: Sleep hygiene reinforced Zolpidem was discontinued previously due to her encephalopathy Continue Trazodone 150 mg Q HS PRN (10) Anxiety: Code(s): F41.9 - Anxiety disorder, unspecified Plan: Continue Lorazepam 1 mg twice a day as needed (11) Obesity (BMI 30-39.9): Code(s): E66.9 - Obesity, unspecified Plan: Reinforced diet and lose weight; exercise is unrealistic given patient's physical incapacities and her recent CVA Plan Follow up in 3 months - patient has been advised that her next appointment should be in-person Orders: Orders Lipid Panel 3 Months E78.00 - Pure hypercholesterolemia, unspecified TSH reflex Free T4 3 Months E78.00 - Pure hypercholesterolemia, unspecified Vitamin D 25-OH Total 3 Months E55.9 - Vitamin D deficiency, unspecified Vitamin B12 and Folate 3 Months E53.8 - Deficiency of other specified B group vitamins Complete Blood Count Auto Diff 3 Months D64.9 - Anemia, unspecified Comprehensive [place]. Panel Fast 3 Months E78.00 - Pure hypercholesterolemia, unspecified UA CC w/rflx Micro + Cult 3 Months R30.0 - Dysuria Coding Level of Care Code Tele Est Pt Level 4 (29588) Diagnoses Benign essential hypertension I10 Pure hypercholesterolemia E78.00 Impaired fasting glucose R73.01 Subarachnoid hemorrhage I60.9 Mild intermittent asthma without complication J45.20 Asthma severity: mild Asthma persistence: intermittent Asthma complication type: uncomplicated Lumbar degenerative disc disease M51.36 Neuropathy G62.9 Vitamin D deficiency E55.9 Primary insomnia F51.01 Insomnia type: primary Anxiety F41.9 Obesity (BMI 30-39.9) E66.9
[2024-04-23 14:14] VITALS: BP 125/77
== END 2024-04-23 16:30 | disposition home or self-care (01) ==
LOC: HO.HMGH 14:13
PROVIDERS: PCP Internal Medicine; Visit Provider Internal Medicine
DX: I10 Essential (primary) hypertension (principal); I60.9 Nontraumatic subarachnoid hemorrhage, unspecified; E66.9 Obesity, unspecified; E78.00 Pure hypercholesterolemia, unspecified; R73.01 Impaired fasting glucose; J45.20 Mild intermittent asthma, uncomplicated; M51.36 Other intervertebral disc degeneration, lumbar region; G62.9 Polyneuropathy, unspecified; E55.9 Vitamin D deficiency, unspecified; F51.01 Primary insomnia; F41.9 Anxiety disorder, unspecified
CPT/HCPCS: 99443

== ENCOUNTER 2024-07-26 09:12 | Outpatient (REF) | payer OTHER, SELFPAY ==
[2024-07-26 13:04] LABS: MANUAL DIFF FLAG NO
[2024-07-26 13:07] LABS: Basophils Absolute Auto 0.1 X10*3/uL (0.0-0.2); Basophils Percent Auto 0.8 % (0-2); Eosinophils Absolute Auto 0.2 X10*3/uL (0.0-0.4); Hematocrit 35.1 % (37.0-47.0); Hemoglobin 11.2 g/dl (12.0-16.0); Imm Gran Abs Auto 0.02 X10*3/uL (0.00-0.03); Imm Gran Pct Auto 0.3 % (0.0-0.4); Lymphocytes Absolute Auto 1.2 X10*3/uL (1.2-4.9); Lymphocytes Percent Auto 16.3 % (20-40); Mean Corpuscular HGB Conc 31.9 g/dl (31.0-35.0); Mean Corpuscular Hemoglobin 27.9 pg (27.0-33.0); Mean Corpuscular Volume 87.5 fL (80.0-98.0); Mean Platelet Volume 10.2 fL (9.4-12.3); Monocytes Absolute Auto 0.5 X10*3/uL (0.1-1.2); Monocytes Percent Auto 7.1 % (2-11); Neutrophils Absolute Auto 5.5 x10*3/uL (2.0-8.3); Neutrophils Percent Auto 73.5 % (45-73); Platelet Count 250 X10*3/uL (160-400); Red Blood Count 4.01 X10*6/uL (4.20-5.50); Red Cell Distribution Width 14.7 % (11.0-16.0); White Blood Count 7.4 X10*3/uL (4.8-10.8)
[2024-07-26 13:19] LABS: Appearance Urine Clear; Color Urine Yellow; Glucose Urine UA Negative (Negative); Leukocyte Esterase Urine Trace (Negative); Nitrite Urine Negative (Negative); UMIC TRIGGER UACC YES; Urine Blood Negative (Negative); Urine Ketones Negative (Negative); Urine Protein Negative (Neg-Trace)
[2024-07-26 13:25] LABS: Bacteria Urine None Seen (None Seen); Hyaline Casts Urine 0-2 /LPF (0-2); RBC Urine 0-2 /HPF (0-2); Squamous Epithelial Cell Urine 0-2 /HPF (0-2); WBC Urine 0-5 /HPF (0-5)
[2024-07-26 13:41] LABS: Alanine Aminotransferase 11 U/L (0-31); Albumin Level 3.8 g/dL (3.5-5.0); Alkaline Phosphatase 71 U/L (39-117); Anion Gap 12 (12-20); Aspartate Amino Transferase 16 U/L (5-31); Bilirubin Total 0.4 mg/dL (0.0-1.0); Blood Urea Nitrogen 13 mg/dL (9-16); Calcium 9.5 mg/dL (8.4-10.2); Carbon Dioxide 26 mmol/L (22-29); Chloride 109 mmol/L (96-108); Cholesterol 125 mg/dL (<200); Estimated Glomerular Filt Rate > 60; Glucose Fasting 84 mg/dL (60-99); HDL Cholesterol 35 mg/dL (>40); LDL Cholesterol Calculated 78 mg/dL (<100); Potassium 4.8 mmol/L (3.3-5.1); Sodium 142 mmol/L (135-145); Total Protein 6.4 g/dL (6.5-8.0); Triglycerides 60 mg/dL (<150)
[2024-07-26 13:43] LABS: TSH reflex Free T4 0.88 uIU/mL (0.32-4.0); Vitamin D 25-OH Total 27.5 ng/mL (>30)
[2024-07-26 13:53] LABS: Folate 7.9 ng/mL (> or = 4.0); Vitamin B12 358 pg/mL (200-900)
== END 2024-07-26 09:13 | disposition home or self-care (01) ==
LOC: HO.HMGCLDS 09:12
PROVIDERS: PCP Internal Medicine; Visit Provider Internal Medicine
DX: E78.00 Pure hypercholesterolemia, unspecified (principal); E55.9 Vitamin D deficiency, unspecified; E53.8 Deficiency of other specified B group vitamins; D64.9 Anemia, unspecified
CPT/HCPCS: 36415; 80053; 80061; 81001; 82306; 82607; 82746; 84443; 85025

== ENCOUNTER 2024-07-30 14:27 | Outpatient (AMB) | payer OTHER, SELFPAY ==
--- NOTE | 2024-07-30 14:32 | A.OFFPC_ITS ---
Vital Signs 07/30/24 14:33 Height 5 ft 1 in Weight 183 lb 6.793 oz BMI 34.7 BP 130/64 Blood Pressure Location Lt brachial Position Sitting Pulse 65 Pulse Source Pulse Oximeter Pulse Oximetry (%) 96 Oxygen Delivery Method Room Air Intake Visit Reasons: 3mth f/u (appt should be in-person) Train Director Required: No Accompanied by: Self / Same As Patient Allergies No Known Allergies Allergy (Verified 07/30/24 15:10) Medication List - Last Reconciled 07/30/24 by Nahid Tilley MD albuterol sulfate 90 mcg/actuation 2 puffs PO QID PRN amlodipine 10 mg PO DAILY atorvastatin 20 mg PO DAILY blood pressure monitor As directed cholecalciferol (vitamin D3) 25 mcg PO DAILY compr.stocking,knee,long,large As directed ibuprofen 800 mg PO TID PRN lorazepam 1 mg PO BID PRN 30 days losartan 50 mg PO DAILY 90 days methocarbamol 500 mg PO Q8H PRN morphine ER 120 mg (2 x 60 mg) PO BID 28 days oxycodone-acetaminophen 10-325 mg 1 tab PO BID PRN 28 days pregabalin 150 mg PO TID 30 days [SHOWER CHAIR SHOWER CHAIR - Use as directed] trazodone 150 mg PO BEDTIME PRN 30 days Tobacco use date assessed: 07/30/24 Fall risk assessment: No Falls in past year Last assessed Fall Risk: 07/30/24 Dental Screening Dental Screen Date: 07/30/24 Did you have a dental visit in the last 12 months?: No Did you have a dental problem in the last 6 months where you did not have access to dental care?: No Was dental information given to patient?: No HPI 3mth f/u (appt should be in-person) HPI Details Patient comes in today for her follow up visit States that she feels okay She denies any headaches or dizziness Denies any chest pains, no increased SOB No nausea/vomiting, no abdominal pain No change in bowel habits noted States that her chronic low back pain and joint pains remain adequately controlled on her current Rx - needs her Morphine and Percocet Rx refilled today She had her follow up labs done a few days ago - to discuss her results [facility] Medical History (Updated 07/30/24 @ 21:28 by Nahid Tilley MD) Subarachnoid hemorrhage Benign essential hypertension Obesity (BMI 30-39.9) Anxiety Insomnia Vitamin D deficiency Neuropathy Asthma Impaired fasting glucose Pure hypercholesterolemia Lumbar degenerative disc disease Surgical History History of lumbar surgery H/O total hysterectomy Family History Father CVD (cardiovascular disease) Mother Cancer Social History Housing: Apartment Alcohol intake: never Patient Tobacco Use Status: Former Tobacco user e-Cigarette/Vaping Use: Never Used Second Hand Smoke Exposure: Yes service: No Current occupational status: disabled Cognitive needs: No Hearing needs: No Vision needs: No Questionnaire PHQ-9 Over the last 2 weeks, how often have you been bothered by any of the following problems? 1. Little interest or pleasure in doing things: not at all 2. Feeling down, depressed, or hopeless: not at all 3. Trouble falling or staying asleep, or sleeping too much: not at all 4. Feeling tired or having little energy: not at all 5. Poor appetite or overeating: not at all 6. Feeling bad about yourself - or that you are a failure or have let yourself or your family down: not at all 7. Trouble concentrating on things, such as reading the newspaper or watching television: not at all 8. Moving or speaking so slowly that other people could have noticed. Or the opposite - being so fidgety or restless that you have been moving around a lot more than usual: not at all 9. Thoughts that you would be better off or of hurting yourself in some way: not at all Total score: 0 Depression Screening Interpretation: Negative Depression Screening Done: Yes 55285 - PHQ-9 Billing: Yes Source: Developed by Drs. Juan Larson, Maile Arzate, Trung Durbin and colleagues, with an educational chioma from [employer]. Thrive Questionnaire Date Thrive assessed: 07/30/24 I am a: Patient What is your living situation today?: I have a steady place to live Within the past 12 months, did the food you bought not last and you didn't have the money to get more?: Never true Within the past 12 months, did you worry whether your food would run out before you got money to buy more?: Never true Do you have trouble paying for medicines?: No Do you have trouble getting transportation to medical appointments?: No Do you have trouble paying your heating and electricity bill?: No Do you have trouble taking care of your child, family member or friend?: No Do you have trouble with day-to-day activities such as bathing, preparing meals, shopping, managing finances, etc.?: No Are you currently unemployed and looking for a job?: No Are you interested in more education?: No Please select the resources that you would like help with: None Currently or been in a relationship where the following occur: No concerns repor jamilah THRIVE Score: 0 AUDIT C Alcohol Use Questionnaire (AUDIT-C) 1. How often do you have a drink containing alcohol?: Never 3. How often do you have six or more drinks on one occasion?: Never Total Score: 0 Score Reviewed/Action Taken: Yes HAILY-7 AMB Questionnaire HAILY-7 Date HAILY - 7 assessed: 07/30/24 Feeling nervous, anxious, or on edge: 0 = Not at all Not being able to stop or control worryin = Not at all Worrying too much about different things: 0 = Not at all Trouble relaxin = Not at all Being so restless that it is hard to sit still: 0 = Not at all Becoming easily annoyed or irritable: 0 = Not at all Feeling afraid as if something awful might happen: 0 = Not at all Total HAILY-7 score (0-4 normal; 5-9 mild; 10-14 moderate; 15-21 severe): 0 Source: Developed by Drs. Juan Larson, Maile Arzate, Trung Durbin and colleagues, with an educational chioma from [employer]. Review of Systems Const Denies chills, Reports difficulty sleeping, Denies fatigue, Denies fever(s) and Denies headache(s) ENT Denies dysphagia, Denies dizziness, Denies otalgia, Denies headache(s), Denies neck pain, Denies odynophagia and Denies sore throat Card Denies chest pain, Denies palpitations and Denies dyspnea Resp Denies chest congestion, Denies cough, Denies dyspnea and Denies wheezing GI Denies abdominal pain, Denies constipation, Denies dysphagia, Denies heartburn, Denies diarrhea, Denies nausea, Denies odynophagia and Denies vomiting Denies difficulty voiding, Denies nocturia, Denies dysuria and Denies urinary urgency Musc Reports back pain (over the lower back - chronic), Denies neck pain and Reports stiffness (over the lower back) Skin/Breast Denies rash Neuro Denies dizziness, Denies headache(s) and Reports radicular pain (into both lower extremities) Psych Reports anxiety Endo Denies fatigue and Denies palpitations Aller/Immun Denies wheezing Physical exam (Primary Care) Vital Signs: Last Vital Signs Pulse 65 07/30/24 14:33 BP 130/64 07/30/24 14:33 Pulse Ox 96 07/30/24 14:33 Oxygen Delivery Method Room Air 07/30/24 14:33 BMI result Body Mass Index 34.7 Tobacco/Smoking Status: Tobacco use Status Tobacco use date assessed 07/30/24 07/30/24 14:35 Patient Tobacco Use Status Former Tobacco user 07/30/24 14:35 e-Cigarette/Vaping Use Never Used 07/30/24 14:35 PHQ-9: PHQ-9 Score PHQ-9: Total score 0 07/30/24 15:14 Depression Screening Interpretation: Negative Thrive Assessment: Date of Thrive Assessment Date Thrive assessed 07/30/24 07/30/24 14:35 Currently or been in a relationship where the following occur: No concerns reported Const General: no acute distress and alert HENMT Ears: TM's normal bilaterally and EAC's normal Throat: Yes posterior oropharynx normal and Yes tonsils normal (no TP congestion) Neck Neck: Yes no lymphadenopathy and Yes supple Thyroid: Thyroid normal Resp Auscultation: clear to auscultation bilaterally, no rales and no wheezes Cardio Rate: regular rate Rhythm: regular rhythm Heart sounds: no murmurs GI Palpation (GI): Soft to palpation and nontender Auscultation: normal bowel sounds General: Yes no CVA tenderness Back/Spine/Pelvis Back: no CVA tenderness Thoracic/Lumbar Spine: lumbar spinal tenderness Skin Rashes: no rashes Extrem General: Yes no clubbing, cyanosis or edema Results Reviewed Results Reviewed: Laboratory Tests 07/26/24 07/26/24 09:50 09:55 WBC 7.4 Hgb 11.2 L Hct 35.1 L Plt Count 250 D Sodium 142 Potassium 4.8 Creatinine 0.76 Estimated GFR > 60 Fasting Glucose 84 Calcium 9.5 AST 16 ALT 11 Triglycerides 60 Cholesterol 125 LDL Cholesterol, Calc 78 HDL Cholesterol 35 L Vitamin B12 358 25-OH Vitamin D Total 27.5 L TSH 0.88 Ur Specific [place] 1.010 Urine Protein Negative Urine Glucose (UA) Negative Urine Blood Negative Urine Nitrite Negative Ur Leukocyte Esterase Trace H Coding Level of Care Code Est Pt Level 4 (14419) Diagnoses Benign essential hypertension I10 Pure hypercholesterolemia E78.00 Impaired fasting glucose R73.01 History of subarachnoid hemorrhage Z86.79 Mild intermittent asthma without complication J45.20 Asthma severity: mild Asthma persistence: intermittent Asthma complication type: uncomplicated Degeneration of intervertebral disc of lumbar region with discogenic back pain M51.360 Disc-related pain type: discogenic back pain only Neuropathy G62.9 Vitamin D deficiency E55.9 Primary insomnia F51.01 Insomnia type: primary Anxiety F41.9 Obesity (BMI 30-39.9) E66.9 Assessment & Plan Assessment & Plan (1) Benign essential hypertension: Code(s): I10 - Essential (primary) hypertension Category: Medical Plan: Reinforced low sodium diet - goal is systolic BP of 140 mm or less Continue Losartan 50 mg QD and Amlodipine 10 mg QD She is reminded to continue monitoring her blood pressure regularly (2) Pure hypercholesterolemia: Code(s): E78.00 - Pure hypercholesterolemia, unspecified Category: Medical Plan: Results of her labs done a few days ago reviewed and discussed with patient - she is advised that her cholesterol levels have improved significantly from previous Reinforced low cholesterol diet Continue Atorvastatin 20 mg QD Will have patient recheck her labs and fasting lipids in 3 months for follow up (3) Impaired fasting glucose: Code(s): R73.01 - Impaired fasting glucose Category: Medical Plan: FBS was normal at 84 mg/dl on her recent labs Her HgbA1c was normal at 5.4% and 5.3% when previously checked Reinforced low calorie/low carb diet; exercise as tolerated (4) History of subarachnoid hemorrhage: Code(s): Z86.79 - Personal history of other diseases of the circulatory system Category: Medical Plan: Patient has NO apparent residual neurologic symptoms from her CVA back in [address] in August 2021 revealed (+) acute 1.5 cm right frontal intraparenchymal hematoma with mild surrounding edema; acute subarachnoid he morrhage in the cortical sulci along the posterior left vertex and upper left cerebral convexity. 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 Vasculitis work ups back then were all unremarkable She was previously referred to neurology for further evaluation and management but it appears that patient never went for her appt As she has not had any problems since, patient requested to hold off on neurology referral for now Continue Keppra 500 mg BID (5) Asthma: Code(s): J45.909 - Unspecified asthma, uncomplicated Category: Medical Qualifiers: Asthma severity: mild Asthma persistence: intermittent Asthma complication type: uncomplicated Qualified Code(s): J45.20 - Mild intermittent asthma, uncomplicated Plan: Stable - continue Albuterol HFA 2 puffs 4 times a day as needed (6) Lumbar degenerative disc disease: Code(s): M51.36 - Other intervertebral disc degeneration, lumbar region Category: Medical Qualifiers: Disc-related pain type: discogenic back pain only Qualified Code(s): M51.360 - Other intervertebral disc degeneration, lumbar region with discogenic back pain only Plan: Reinforced activity and weight lifting restrictions to avoid aggravating her back pain Continue Lyrica 150 mg 3 times a day, Ibuprofen 800 mg 3 times a day with food as needed, Methocarbamol 500 mg every 8 hours as needed, Oxycodone-Acetaminophen 10-325 mg twice a day as needed for pain? and Morphine ER 60 mg 2 tablets twice a day - Rx refilled (7) Neuropathy: Code(s): G62.9 - Polyneuropathy, unspecified Category: Medical Plan: Patient states that Lyrica is helping with her symptoms of neuropathy (8) Vitamin D deficiency: Code(s): E55.9 - Vitamin D deficiency, unspecified Category: Medical Plan: Continue Vitamin D3 2000 units QD (9) Insomnia: Code(s): G47.00 - Insomnia, unspecified Category: Medical Qualifiers: Insomnia type: primary Qualified Code(s): F51.01 - Primary insomnia Plan: Sleep hygiene reinforced Zolpidem was discontinued previously due to her encephalopathy Continue Trazodone 150 mg Q HS PRN (10) Anxiety: Code(s): F41.9 - Anxiety disorder, unspecified Category: Medical Plan: Continue Lorazepam 1 mg twice a day as needed (11) Obesity (BMI 30-39.9): Code(s): E66.9 - Obesity, unspecified Category: Medical Plan: Reinforced diet and lose weight; exercise is unrealistic given patient's physical incapacities Plan Follow up in 3 months Orders: Orders Lipid Panel 3 Months E78.00 - Pure hypercholesterolemia, unspecified Vitamin B12 and Folate 3 Months E53.8 - Deficiency of other specified B group vitamins UA CC w/rflx Micro + Cult 3 Months R30.0 - Dysuria Complete Blood Count Auto Diff 3 Months D64.9 - Anemia, unspecified Comprehensive [place]. Panel Fast 3 Months E78.00 - Pure hypercholesterolemia, unspecified Vitamin D 25-OH Total 3 Months E55.9 - Vitamin D deficiency, unspecified TSH reflex Free T4 3 Months E78.00 - Pure hypercholesterolemia, unspecified Hemoglobin A1c 3 Months R73.01 - Impaired fasting glucose Medications: Refilled morphine ER Take 2 tablets orally twice a day 120 mg (2 x 60 mg) PO BID 28 days 112 tabs 0RF M51.36 - Other intervertebral disc degeneration, lumbar region oxycodone-acetaminophen 10-325 mg Take 1 tablet orally twice a day as needed for pain 1 tab PO BID 28 days PRN 56 tabs 0RF pain M51.36 - Other intervertebral disc degeneration, lumbar region
[2024-07-30 14:33] VITALS: BP 130/64; PULSE 65; O2SAT 96; BMI 34.7
== END 2024-07-30 15:19 | disposition home or self-care (01) ==
PROVIDERS: PCP Internal Medicine; Visit Provider Internal Medicine
DX: I10 Essential (primary) hypertension (principal); E78.00 Pure hypercholesterolemia, unspecified; E66.811 Obesity, class 1; Z68.34 Body mass index [BMI] 34.0-34.9, adult; R73.01 Impaired fasting glucose; Z86.79 Personal history of other diseases of the circulatory system; J45.20 Mild intermittent asthma, uncomplicated; M51.360 Other intervertebral disc degeneration, lumbar region with discogenic back pain only; G62.9 Polyneuropathy, unspecified; E55.9 Vitamin D deficiency, unspecified; F51.01 Primary insomnia; F41.9 Anxiety disorder, unspecified

== ENCOUNTER → 2024-07-30 14:27 | Outpatient (BNVA) | payer OTHER, SELFPAY | PROVIDERS: PCP Internal Medicine; Visit Provider Internal Medicine | DX: I10 Essential (primary) hypertension (principal); E78.00 Pure hypercholesterolemia, unspecified; R73.01 Impaired fasting glucose; J45.20 Mild intermittent asthma, uncomplicated; M51.360 Other intervertebral disc degeneration, lumbar region with discogenic back pain only; G62.9 Polyneuropathy, unspecified; E55.9 Vitamin D deficiency, unspecified; F51.01 Primary insomnia; F41.9 Anxiety disorder, unspecified; E66.9 Obesity, unspecified; Z86.79 Personal history of other diseases of the circulatory system | CPT/HCPCS: 99212 ==